=== PATIENT | male | born 1970 | race Caucasian/White ===

== ENCOUNTER 2023-06-11 18:18 | Inpatient (IN) | payer OTHER, SELFPAY ==
[2023-06-11 09:52] VITALS: BP 183/91
--- NOTE | 2023-06-11 10:42 | ED.GENMED ---
History of Present Illness
<Carmen Roth PA-C - Last Filed: 06/11/23 16:10>
General
Chief Complaint: Swallowing Problem
Source: patient
Exam Limitations: none
Time Seen by Provider: 06/11/23 10:20
Nursing documentation reviewed up to this point in time: agreed with
Travel History
Have you had any contact with someone who has COVID-19?: No
Do you have any symptoms of coronavirus? Fever > 100 degrees, chills, cough, shortness of breath, sore throat, loss of taste or smell, muscle aches, or headache?: No
History of Present Illness
History of Present Illness:
Patient is a 52-year-old male with a history of smoking and glaucoma, former alcohol abuse clean for the last 60 days after going to [facility] who is visiting his mom since the beginning of this month presents for dysphagia initially
just to solids but now to liquids over the past 2 to 3 months. He seems like symptoms are getting much worse in the last 2 or 3 weeks since being here. He has needed to switch his diet to soft foods and sometimes even for example a small bowl of
oatmeal which the patient had for breakfast yesterday which was probably about 5 ounces took him 2 hours to swallow and passed. Patient says he feels when he swallows food it gets stuck in the upper esophagus and causes a pretty intense upper back
pain. He will have to stretch or lift his arms above his head in order to pass the food. Sometimes he he tries to drink water after small bites and needs to regurgitate the water. He is actually not lost any weight despite being unable to eat
many solid foods, he believes this is because he had put on weight while he was drinking alcohol daily. Patient has never had an endoscopy before, he has no history of GI bleeding. Patient says sometimes at night he has trouble swallowing his spit
or breathing.
He gets hiccups often.
Currently the patient denies any discomfort. He was able to swallow 1 small sip of water and did not regurgitate it but got pain with swallowing.
Past History
<Carmne Roth PA-C - Last Filed: 06/11/23 16:10>
Past History
ED Past Medical History: Other (glaucoma)
ED Past Surgical History: Orthopedic (Surg R knee) and Other (hernia)
Social History
Tobacco: Smoker
Alcohol: Former (sober 60 days)
Personal: Single
Living: alone
Phy Exam
<Carmen Roth PA-C - Last Filed: 06/11/23 16:10>
Physical Exam
Physical Exam:
GENERAL: Alert , in no apparent distress
EYE: pupils equal and reactive
NECK: Supple
ENT: o/p clr, mmm. No posterior pharyngeal erythema
Phonation normal
CARDIAC: Regular rate and rhythm .
LUNGS: Clear breath sounds bilaterally, no acute respiratory distress, no wheezes/rales/rhonchi
ABDOMEN: Soft, without focal tenderness, no r/g, no cvat, normal bowel sounds
NEUROLOGICAL: Alert and oriented, no focal neuro deficits
SKIN: Warm and dry, skin intact.
MUSCULOSKELETAL: No edema, well perfused. neg jose daniel's sign
PSYCH: Normal and appropriate interaction.
Course
<Carmen Roth PA-C - Last Filed: 06/11/23 16:10>
Orders/Labs/Results
Orders:
Orders
06/11/23 10:54
Pantoprazole [Protonix IV] 40 mg IV NOW STA
06/11/23 10:56
CT Chest/abd/pel W Iv Cont Urgent
Comment:
Reason For Exam: severe dysphagia
06/11/23 11:15
Complete Blood Count/With Diff Urgent
Comprehensive Metabolic Panel Urgent
Lipase Urgent
PTT Urgent
Prothrombin Time Urgent
Abnormal Lab Results
06/11/23
11:15
RBC 4.36 L 10^6/uL
(4.70-6.10)
Hct 37.7 L %
(39.0-52.0)
MPV 11.3 H fL
(7.4-10.4)
Eosinophils % 9.0 H %
(0-6)
BUN 24 H mg/dl
(9-20)
Glucose 103 H mg/dl
(70-99)
06/11/23 11:15
06/11/23 11:15
Vital Signs
Initial and Last Documented VS:
Initial Vital Signs
Temp Pulse Resp BP Pulse Ox
97.9 F 70 16 183/91 98
06/11/23 09:52 06/11/23 09:52 06/11/23 09:52 06/11/23 09:52 06/11/23 09:52
Last Documented Vital Signs
Temp Pulse Resp BP Pulse Ox
97.9 F 59 18 130/90 98
06/11/23 09:52 06/11/23 14:45 06/11/23 14:45 06/11/23 14:15 06/11/23 15:03
<Niurka Forte MD - Last Filed: 06/11/23 11:25>
Orders/Labs/Results
Orders:
Orders
06/11/23 10:54
Pantoprazole [Protonix IV] 40 mg IV NOW STA
06/11/23 10:56
CT Chest/abd/pel W Iv Cont Urgent
Comment:
Reason For Exam: severe dysphagia
06/11/23 11:15
Complete Blood Count/With Diff Urgent
Comprehensive Metabolic Panel Urgent
Lipase Urgent
PTT Urgent
Prothrombin Time Urgent
Abnormal Lab Results
06/11/23
11:15
RBC 4.36 L 10^6/uL
(4.70-6.10)
Hct 37.7 L %
(39.0-52.0)
MPV 11.3 H fL
(7.4-10.4)
Eosinophils % 9.0 H %
(0-6)
BUN 24 H mg/dl
(9-20)
Glucose 103 H mg/dl
(70-99)
06/11/23 11:15
06/11/23 11:15
Vital Signs
Initial and Last Documented VS:
Initial Vital Signs
Temp Pulse Resp BP Pulse Ox
97.9 F 70 16 183/91 98
06/11/23 09:52 06/11/23 09:52 06/11/23 09:52 06/11/23 09:52 06/11/23 09:52
Last Documented Vital Signs
Temp Pulse Resp BP Pulse Ox
97.9 F 59 18 130/90 98
06/11/23 09:52 06/11/23 14:45 06/11/23 14:45 06/11/23 14:15 06/11/23 15:03
Carrolllt;Carmen Roth PA-C - Last Filed: 06/11/23 16:10>
MDM/Problems Addressed
Differential Diagnosis Includes:
Malignancy, dysphagia, esophageal stricture, achalasia, esophagitis
MDM/Problems Addressed:
52-year-old male with history of alcohol abuse and smoking presents for progressive dysphagia, initially to solids and now to liquids. He is able to eat some soft pur�ed foods but it takes him many attempts and several hours, he gets a pretty
intense pain in his upper back when he swallows food that he feels gets stuck. He sometimes will regurgitate liquids. The symptoms are progressive over the last 2 weeks. He is visiting from [place], sounds as if he may be a more permanent
resident of [place] for now while he is having ongoing issues with glaucoma.
Patient was able to swallow 1 small swig of his water but got some discomfort. He did not regurgitate it for me. The concern with his smoking history is he could have malignancy. I reached out to GI attending recommended imaging and we will
discuss the plan once imaging results
06/11/[address] results d/w patient, concerning for malignancy esophageal
GI attending updated
pt will be scoped
admit
<Carmen Roth PA-C - Last Filed: 06/11/23 16:10>
*Critical Care Note
Total Time (30-74mins, 75-104mins- exclusive of procedures): Not Applicable
ED Attending Note
<Carmen Roth PA-C - Last Filed: 06/11/23 16:10>
-
Portions of this chart may have been created with voice recognition software.� Occasional wrong word or��sound alike� substitutions may have occurred due to the inherent limitations of voice recognition software.
<Niurka Forte MD - Last Filed: 06/11/23 11:25>
ED Attending Note
Patient seen and examined by attending physician: Yes
I performed the substantive portion of visit, reviewed & personally made and approve the management plan that is documented in note by myself or ELOISA.: Yes
ED Attending Note:
The patient looks well-nourished and well-perfused. Normal-appearing oropharynx area. I am suspicious for mechanical esophageal obstruction due to a possible mass or stricture
Discharge Plan
Departure
Patient Disposition: Admit
Date of Disposition: 06/11/23
Time of Disposition: 15:34
Admit to: Med/Surg
Presentation/result/management discussed w/ accepting MD/DO: Hospitalist
Condition: Fair
Covid-19: Not Applicable
Discharge Problem:
Dysphagia
Prescriptions:
No Action
latanoprost 0.005 % Drops
1 drp BOTH EYES HS
vitamin B complex [B Complete] Tablet
1 tab PO DAILY
dorzolamide-timolol [Cosopt] 22.3-6.8 mg/mL Drops
1 drp BOTH EYES BID
BC Pain Relief 845-65 mg Powder In Packet
1 ea PO DAILYPRN PRN (Reason: knee pain)
Referrals:
NONE,* [Family Provider] -
Interventions
Interventions:
*General Assessment Last Done: 06/11/23 11:10
ED- Fall Risk Assessment Last Done: 06/11/23 11:25
*ED COVID-19 Vaccine History Last Done: 06/11/23 09:52
ED-EENT Assessment Last Done: 06/11/23 11:25
PL-Ckdgnr-Osrezkgiti Assessment Last Done: 06/11/23 11:25
ED- Pulmonary Assessment Last Done: 06/11/23 11:25
ED- Neurological Assessment Last Done: 06/11/23 11:25
ED Swallowing Screen Last Done: 06/11/23 15:12
[2023-06-11 11:10] VITALS: BMI 35.4
[2023-06-11] MEDS: PROTONIX IV 40 MG IV (11:16)
[2023-06-11 11:32] LABS: % Immature Granulocytes 0.3 % (0-0.5); % Lymphocytes 24.6 % (20.5-51.1); % Monocytes 7.2 % (1.7-9.3); % Neutrophils 57.9 % (42.2-75.2); Absolute Basophils 0.1 10^3/uL (0-0.2); Absolute Eosinophils 0.7 10^3/uL (0-0.7); Absolute Lymphocytes 1.9 10^3/uL (1.2-3.4); Absolute Monocytes 0.6 10^3/uL (0.1-0.6); Absolute Neutrophils 4.5 10^3/uL (1.4-6.5); Hematocrit 37.7 % (39.0-52.0); Hemoglobin 13.3 g/dL (13.0-18.0); Mean Corp Hgb Conc. 35.3 g/dL (33.0-37.0); Mean Corpuscular Hgb 30.5 pg (27.0-31.0); Mean Corpuscular Volume 86.5 fL (80.0-94.0); Mean Platelet Volume 11.3 fL (7.4-10.4); Nucleated Red Blood Cells % 0 % (-); Platelet Count 218 10^3/uL (130-400); Red Blood Cell Count 4.36 10^6/uL (4.70-6.10); Red Cell Dist. Width 11.8 % (11.5-14.5); White Blood Cell Count 7.7 10^3/uL (4.8-10.8)
[2023-06-11 11:41] LABS: ALT (SGPT) 18 U/L (0-50); AST (SGOT) 25 U/L (17-59); Albumin 3.7 g/dl (3.5-5.0); Alkaline Phosphatase 61 U/L (38-126); Blood Urea Nitrogen 24 mg/dl (9-20); Calcium 9.3 mg/dl (8.4-10.2); Carbon Dioxide 23 mmol/L (22-30); Chloride 106 mmol/L (98-107); Estimated Creatinine Clearance 110 ml/min; Glucose 103 mg/dl (70-99); Lipase 171 U/L (23-300); Potassium 4.3 mmol/L (3.5-5.1); Sodium 136 mmol/L (135-145); Total Bilirubin 0.5 mg/dl (0.2-1.3); Total Protein 6.6 g/dl (6.3-8.2); eGFR > 60.00
[2023-06-11 11:44] LABS: INR 1.03; PT 13.5 Sec (11.4-14.6)
[2023-06-11 11:45] LABS: APTT 30.5 Sec (23.4-35.0)
[2023-06-11 12:00] VITALS: BP 131/91
[2023-06-11 14:15] VITALS: BP 130/90
--- NOTE | 2023-06-11 16:19 | CON.GI ---
Consultation
-
Date/Time Consultation Requested: 06/11/23
Date/Time Consultation Performed: 06/11/23
Requesting Provider: Carmen YU
Performing Provider:
Reason for Consultation: Dysphagia
Medical History
Chief Complaint / HPI
Chief Complaint: Dysphagia
History of Present Illness:
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
area he is currently living with his mom. he came in May to visit his mom. He also had right inguinal hernia repair surgery in [place] about 3 months ago and he says that he has a fluid collection likely seroma at that site since then. He has
been having symptoms of dysphagia ongoing for the past 5 months initially started with solids but for the past 3 months he has had progressive worsening of his symptoms and now he has dysphagia to both solids and liquids. He says that yesterday he
was trying to eat oatmeal and took him about 2 hours to finish a small amount of oatmeal he has been having trouble with liquids going down and regurgitating. He also has chest pain when he feels the food is stuck with solids especially. He denies
any symptoms of reflux. he denies any weight loss though. No fevers or chills he does have a history of smoking and prior alcohol abuse. He also has chronic constipation and he says that it usually resolves when he drinks prune juice. he has not
had an endoscopy or colonoscopy in the past.
Past Medical History
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
Past Surgical History: Other (Right inguinal hernia repair about 3 months ago in [place], right knee surgery)
Social History
Tobacco: Smoker
Alcohol: Former (History of heavy alcohol use for a number of years he said he was sober for about 4 years but relapsed again and now has been sober for the past 60 days)
Family History
Family History: Reviewed & Not Pertinent
Allergies / Home Medications
Allergy/AdvReac Type Severity Reaction Status Date / Time
No Known Allergies Allergy Verified 06/11/23 09:54
Medication Instructions Recorded
aspirin-caffeine 845 mg-65 mg oral 1 ea PO DAILYPRN PRN knee pain 06/11/23
powder packet (BC Pain Relief)
dorzolamide 22.3 mg-timolol 6.8 1 drp BOTH EYES BID 06/11/23
mg/mL eye drops (Cosopt)
latanoprost 0.005 % eye drops 1 drp BOTH EYES HS 06/11/23
vitamin B complex 1 tab PO DAILY 06/11/23
Review of Systems
-
All other systems: A 12 pt ROS was Negative except as stated above in HPI
Vital Signs
Temp Pulse Resp BP Pulse Ox
97.9 F 59 18 130/90 98
06/11/23 09:52 06/11/23 14:45 06/11/23 14:45 06/11/23 14:15 06/11/23 15:03
Physical Exam
Exam
General: No Apparent Distress
HEENT: Normocephalic
Respiratory: Clear
Cardiac: S1/S2
GI: Soft, Non Tender, Non Distended and Normal Bowel Sounds
Musculoskeletal: No Clubbing
Skin: Warm
Neuro: Awake, Alert and Oriented
Psych: Calm
Results
WBC 7.7 10^3/uL (4.8-10.8) 06/11/23 11:15
Hgb 13.3 g/dL (13.0-18.0) 06/11/23 11:15
Hct 37.7 % (39.0-52.0) L 06/11/23 11:15
MCV 86.5 fL (80.0-94.0) 06/11/23 11:15
Plt Count 218 10^3/uL (130-400) 06/11/23 11:15
Absolute Neuts (auto) 4.5 10^3/uL (1.4-6.5) 06/11/23 11:15
PT 13.5 Sec (11.4-14.6) 06/11/23 11:15
INR 1.03 06/11/23 11:15
APTT 30.5 Sec (23.4-35.0) 06/11/23 11:15
Sodium 136 mmol/L (135-145) 06/11/23 11:15
Potassium 4.3 mmol/L (3.5-5.1) 06/11/23 11:15
Chloride 106 mmol/L (98-107) 06/11/23 11:15
Carbon Dioxide 23 mmol/L (22-30) 06/11/23 11:15
BUN 24 mg/dl (9-20) H 06/11/23 11:15
Creatinine 1.0 mg/dL (0.7-1.3) 06/11/23 11:15
Calcium 9.3 mg/dl (8.4-10.2) 06/11/23 11:15
Total Bilirubin 0.5 mg/dl (0.2-1.3) 06/11/23 11:15
AST 25 U/L (17-59) 06/11/23 11:15
ALT 18 U/L (0-50) 06/11/23 11:15
Alkaline Phosphatase 61 U/L (38-126) 06/11/23 11:15
Lipase 171 U/L (23-300) 06/11/23 11:15
Diagnostic Image Results:
06/11/23 CT CHEST/ABDOMEN and PELVIS
IMPRESSION:
There is concentric wall thickening to approximately 1 cm in the distal 3 cm of the esophagus, high level of suspicion for esophageal carcinoma. Endoscopy is recommended.
Prior GI Procedures:
EGD: none
Colonoscopy:none
Assessment / Plan
-
52-year-old male with symptoms of dysphagia to initially solids about 5 months ago but now to both solids and liquids worsening over the past [address] chest abdomen pelvis concerning for possible esophageal neoplasm. Will schedule him for
endoscopy tomorrow to rule out neoplasm and stricture. He currently has no symptoms of acid reflux but since he has been having regurgitation will start him on Protonix.
Data Reviewed
-
CT Scan: Report Reviewed by me
-
-
Thank you for consultation and allowing me to participate in the patient's care. Please call the ammonia nitrate operator GI physician during the after hours with any questions or concerns.
--- NOTE | 2023-06-11 17:48 | HPS.HSE ---
Family Physician
-
Family Physician: * NONE
Chief Complaint
-
dysphagia
History of Present Illness
52 y/o M prior ETOH abuse (sober x 60 days), prior tobacco abuse, currently visiting [place] from [place] presents to ER For dysphagia symptoms. Onset was 5 months ago. He reports initially solid foods which slowly progressed. Now dysphagia includes
liquids as well. Yesterday he tried to eat a small amount of oatmeal - took 2 hours to eat; he experience regurgitation. Sometimes food gets stuck and so experiences chest pain with solids. No reflux history. No weight loss - weight stable for which
he is surprised. No other complaints.
Of note, recent R inguinal hernia surgery in [place] about 3 months ago.
Medical History
Past Medical History
Past Medical History: Reports Other (glaucoma both eyes with complete loss of vision in his right eye and he is legally blind, hard of hearing in his left ear, history of alcohol abuse has been sober for the past 60 days, inguinal hernia)
Past Surgical History: Reports Other (Right inguinal hernia repair about 3 months ago in [place], right knee surgery)
Social History
Tobacco: Smoker
Alcohol: Former
Drug: None
Personal: Single
Living: With Family (Mother)
Family History
Family History: Not pertinent
Allergies / Home Medications
Allergies reflects when Allergies were last updated in [facility].
Home Medications with original date entered in [facility]
Allergy/Medication List:
Allergies
Allergy/AdvReac Type Severity Reaction Status Date / Time
No Known Allergies Allergy Verified 06/11/23 09:54
Home Medications
aspirin-caffeine 845 mg-65 mg oral powder packet (BC Pain Relief) 1 ea PO DAILYPRN PRN knee pain 06/11/23
dorzolamide 22.3 mg-timolol 6.8 mg/mL eye drops (Cosopt) 1 drp BOTH EYES BID 06/11/23
latanoprost 0.005 % eye drops 1 drp BOTH EYES HS 06/11/23
vitamin B complex 1 tab PO DAILY 06/11/23
Review of Systems
-
A 12 point ROS was completed and negative except as noted: Yes
Physical Exam
Vital Signs
Vital Signs
Temp Pulse Resp BP Pulse Ox
97.9 F 67 14 130/90 98
06/11/23 09:52 06/11/23 17:00 06/11/23 17:00 06/11/23 14:15 06/11/23 15:03
Physical Exam
General: Well Developed, Well Nourished and Obese
HEENT: NormoCephalic and Anicteric
Respiratory: No Wheezes or Rales
Cardiac: S1/S2 and Regular Rhythm
GI: Soft and Non Tender
Neuro: AO x 3
Hematologic/Lymphatic: No Lymphadenopathy
Psych: Calm
Laboratory Results
-
06/11/23 11:15
06/11/23 11:15
Laboratory Results
PT 13.5 Sec (11.4-14.6) 06/11/23 11:15
INR 1.03 06/11/23 11:15
APTT 30.5 Sec (23.4-35.0) 06/11/23 11:15
Total Bilirubin 0.5 mg/dl (0.2-1.3) 06/11/23 11:15
AST 25 U/L (17-59) 06/11/23 11:15
ALT 18 U/L (0-50) 06/11/23 11:15
Alkaline Phosphatase 61 U/L (38-126) 06/11/23 11:15
Lipase 171 U/L (23-300) 06/11/23 11:15
Data Reviewed
-
CT Scan: Report Reviewed by me and Discussed with Patient
Lab Data: Labs Reviewed by me and Discussed with Patient
Impression/Plan
-
Assessment:
Dysphagia to solids/liquids x months
- CT: There is concentric wall thickening to approximately 1 cm in the distal 3 cm of the esophagus, high level of suspicion for esophageal carcinoma
- risk factors for malignancy include prior ETOH and smoking history
- GI consulted; EGD planned tomorrow. ok for clears tonight d/w GI
- continue PPI daily
glaucoma both eyes with complete loss of vision in his right eye and he is legally blind
- continue eye drops
hx of ETOH abuse
- sober x 2 months; commended on progress
Tobacco abuse
- nicotine patch
Right inguinal hernia repair about 3 months ago in [place]
DVT ppx: SCDs
Code: Full
[2023-06-11 19:45] VITALS: BP 130/72; BMI 34.0
--- NOTE | 2023-06-11 19:58 | PTCARENOTE ---
pt arrived from ed, walked in. aaox3, VSS, passed swallow screen on unit. see MAR and assessment for further details. call steiner within reach.
[2023-06-11] MEDS: NSS 1000 IV (20:29)
[2023-06-11] MEDS: COSOPT EYE DROPS 1 DROP BOTH EYES (20:30)
[2023-06-11] MEDS: XALATAN OPHTHALMIC SOLUTION 1 DROP BOTH EYES (21:18)
[2023-06-11 23:00] VITALS: BP 129/84
[2023-06-12] VITALS (9 sets, daily range): BP systolic 19–148; BP diastolic 70–102
[2023-06-12] MEDS: TYLENOL 650 MG PO (02:51)
[2023-06-12] MEDS: TORADOL 15 MG IV (04:41)
[2023-06-12 06:18] LABS: Hematocrit 37.3 % (39.0-52.0); Hemoglobin 13.2 g/dL (13.0-18.0); Mean Corp Hgb Conc. 35.4 g/dL (33.0-37.0); Mean Corpuscular Hgb 31.1 pg (27.0-31.0); Mean Platelet Volume 11.2 fL (7.4-10.4); Platelet Count 192 10^3/uL (130-400); Red Blood Cell Count 4.24 10^6/uL (4.70-6.10); Red Cell Dist. Width 11.9 % (11.5-14.5)
[2023-06-12 06:59] LABS: Blood Urea Nitrogen 15 mg/dl (9-20); Calcium 8.9 mg/dl (8.4-10.2); Carbon Dioxide 27 mmol/L (22-30); Chloride 104 mmol/L (98-107); Estimated Creatinine Clearance 123 ml/min; Glucose 84 mg/dl (70-99); Potassium 3.9 mmol/L (3.5-5.1); Sodium 136 mmol/L (135-145); eGFR > 60.00
[2023-06-12] MEDS: NICODERM TRANSDERMAL 14 MG TRANSDERM (07:55)
[2023-06-12] MEDS: COSOPT EYE DROPS 1 DROP BOTH EYES ×2 (07:55→20:35)
[2023-06-12] MEDS: PROTONIX 40 MG PO (07:55)
--- NOTE | 2023-06-12 11:16 | W.PN.HOSP.TC ---
Today's Communication/Plan
-
EGD today
Assessment / Plan
Assessment / Plan
Assessment:
Dysphagia to solids/liquids x months
- CT: There is concentric wall thickening to approximately 1 cm in the distal 3 cm of the esophagus, high level of suspicion for esophageal carcinoma
- risk factors for malignancy include prior ETOH and smoking history
- GI consulted
- EGD: pending today
- continue PPI daily
glaucoma both eyes with complete loss of vision in his right eye and he is legally blind
- continue eye drops
hx of ETOH abuse
- sober x 2 months; commended on progress
Tobacco abuse
- nicotine patch
Right inguinal hernia repair about 3 months ago in [place]
DVT ppx: SCDs
Code: Full
Anticipated Discharge: Within 24 hours
Subjective/Interval History
-
Date of Service: June 12, 2023
reports 'deep' back pain, possibly related to his esophageal process
Objective Data
-
Labs:
Laboratory Results
06/12/23
05:59
WBC 7.0
Hgb 13.2
Hct 37.3 L
Plt Count 192
Sodium 136
Potassium 3.9
Chloride 104
Carbon Dioxide 27
BUN 15
Creatinine 0.9
Glucose 84
Calcium 8.9
Vital Signs:
Vital Signs
Temp Pulse Resp BP Pulse Ox
97.7 F 63 16 143/82 97
06/12/23 07:27 06/12/23 07:27 06/12/23 07:27 06/12/23 07:27 06/12/23 07:27
I&O
06/11/23 06/12/23 06/13/23
06:59 06:59 06:59
Intake Total 120 / 120
Output Total 600 / 600
Balance -480 / -480
Physical Exam
-
General: No Apparent Distress
HEENT: Normocephalic and Atraumatic
Respiratory: Negative Wheezes or Rales
Cardiac: Regular Rhythm and S1/S2
GI: Soft
Genito-urinary: No Costovertebral Tender
Neuro: AO x 3
Psych: Calm
Data Reviewed
-
Total Time Spent with Patient (in minutes): 45
Labs: Labs Reviewed by me
--- NOTE | 2023-06-12 12:00 | CM ---
Reviewed chart, met with patient to obtain information for assessment. Patient's sister was at bedside. Patient stated that he lives temporarily with his mother who is 85, in a condo with elevator access. Patient reported that he does need her
assistance with ADLs, personal care, dressing and bathing. He ambulates with a cane and a walker for longer distances. Patient stated that his mother has been able to handle the scope of his care as she is in good health and he can do some things on
his own. Patient is from [place] but he is staying with his mother until he hopefully feels better.
Patient is deaf in his left ear and has low vision. He does not drive. His mother and sister take him to his appointments and do all of the shopping. Patient's mother does all the masticator, cooking, cleaning and laundry.
Patient has never had VN services. He has never been to a SNF.
Patient is in the process of working with [facility] [[email or web address]] as he does not have health insurance. He does not have a prescription plan.
He goes to the [facility] in [place] for all of his medications.
Patient stated that he will be able to return home when he is medically cleared for discharge and does not anticipate any needs. He is eager to get dietary instructions for his dysphagia and is anxious about the testing.
Plan: Case management will continue to follow and assist with discharge planning. Patient would like to return home when stable medically.
--- NOTE | 2023-06-12 13:57 | PHANOTE ---
MED REC NOTE- SPOKE TO PATIENT HE DOES TAKE BC PAIN RELIEF POWDER BUT WHEN PHARMACIST WAS IN ROOM HE DIDN'T KNOW WHAT WAS IN THE POWDER. HE JUST KNOWS IT BC POWDER.
[2023-06-12] MEDS: ULTRAM 50 MG PO (15:03)
[2023-06-12 15:30] LABS: Troponin I < 0.012 ng/ml
[2023-06-12 20:41] LABS: Troponin I < 0.012 ng/ml
[2023-06-12] MEDS: XALATAN OPHTHALMIC SOLUTION 1 DROP BOTH EYES (22:19)
[2023-06-13] MEDS: ULTRAM 50 MG PO ×2 (00:54→08:51)
[2023-06-13] MEDS: TYLENOL 650 MG PO (05:54)
[2023-06-13 06:17] LABS: Hematocrit 37.5 % (39.0-52.0); Mean Corp Hgb Conc. 34.7 g/dL (33.0-37.0); Mean Corpuscular Hgb 30.6 pg (27.0-31.0); Mean Corpuscular Volume 88.2 fL (80.0-94.0); Mean Platelet Volume 11.2 fL (7.4-10.4); Platelet Count 199 10^3/uL (130-400); Red Blood Cell Count 4.25 10^6/uL (4.70-6.10); Red Cell Dist. Width 11.8 % (11.5-14.5); White Blood Cell Count 7.9 10^3/uL (4.8-10.8)
[2023-06-13 06:37] LABS: Troponin I < 0.012 ng/ml
[2023-06-13 07:20] LABS: Blood Urea Nitrogen 13 mg/dl (9-20); Calcium 8.8 mg/dl (8.4-10.2); Carbon Dioxide 28 mmol/L (22-30); Chloride 107 mmol/L (98-107); Estimated Creatinine Clearance > 125 ml/min; Glucose 84 mg/dl (70-99); Sodium 137 mmol/L (135-145); eGFR > 60.00
[2023-06-13 08:37] VITALS: BP 150/83
[2023-06-13] MEDS: NICODERM TRANSDERMAL 14 MG TRANSDERM (08:52)
[2023-06-13] MEDS: PROTONIX 40 MG PO (08:52)
[2023-06-13] MEDS: COSOPT EYE DROPS 1 DROP BOTH EYES (08:53)
--- NOTE | 2023-06-13 12:33 | W.PN.HOSP.TC ---
Today's Communication/Plan
-
dc home
Assessment / Plan
Assessment / Plan
Assessment:
Dysphagia to solids/liquids x months
- CT: There is concentric wall thickening to approximately 1 cm in the distal 3 cm of the esophagus, high level of suspicion for esophageal carcinoma
- risk factors for malignancy include prior ETOH and smoking history
- s/p EGD: Low-grade of narrowing Schatzki ring. Dilated. Medium-sized hiatal hernia. Erosive gastropathy with no bleeding and no stigmata of recent bleeding. Biopsied.
Duodenal erosions without bleeding. Normal first portion of the duodenum and second portion of the duodenum.
- continue PPI daily
- DC on Carafate
- GI f/u 1 month
Epigastric pain - likely related to above. Cardiac workup and CT without pulm/Cards etiology.
glaucoma both eyes with complete loss of vision in his right eye and he is legally blind
- continue eye drops
hx of ETOH abuse
- sober x 2 months; commended on progress
Tobacco abuse
- nicotine patch
Right inguinal hernia repair about 3 months ago in [place]
DVT ppx: SCDs
Code: Full
More than 30 minutes spent in discharge including
Final examination of the patient
Summarizing hospital stay
Instructions for continuing care to all relevant caregivers
Preparation of discharge records, prescriptions, and referral forms
Total time spent (in minutes): 41
Anticipated Discharge: Today
Subjective/Interval History
-
Date of Service: June 13, 2023
remains with epigastric pain but reports improving since EGD
tolerating diet
cardiac w/u negative
Objective Data
-
Labs:
Laboratory Results
06/13/23
06:05
WBC 7.9
Hgb 13.0
Hct 37.5 L
Plt Count 199
Sodium 137
Potassium 4.0
Chloride 107
Carbon Dioxide 28
BUN 13
Creatinine 0.8
Glucose 84
Calcium 8.8
Vital Signs:
Vital Signs
Temp Pulse Resp BP Pulse Ox
98.1 F 58 16 150/83 98
06/13/23 08:37 06/13/23 08:37 06/13/23 08:37 06/13/23 08:37 06/13/23 08:37
I&O
06/12/23 06/13/23 06/14/23
06:59 06:59 06:59
Intake Total 120 / 120 240 / 240
Output Total 600 / 600 500 / 500
Balance -480 / -480 -260 / -260
Physical Exam
-
General: No Apparent Distress
HEENT: Normocephalic and Atraumatic
Respiratory: Negative Wheezes or Rales
Cardiac: Regular Rhythm and S1/S2
GI: Soft and Nontender
Musculoskeletal: No Edema
Neuro: AO x 3
Hematologic / Lymphatic: No Lymphadenopathy
Psych: Calm
Data Reviewed
-
Total Time Spent with Patient (in minutes): 41
Labs: Labs Reviewed by me
--- NOTE | 2023-06-13 12:38 | W.DS.TRANS ---
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
-
Discharge Instructions:
Discharge Diagnosis/Procedures esophageal wall thickening Low-grade of
narrowing Schatzki ring which was Dilated.
Diet Regular
Activity As tolerated
Bathing Restrictions None
Instructions:
Stand-Alone Forms:
Changes to Home Medications: No
Discharge Medications:
DC Medications w/original date entered in [facility] [employer] [facility]
dorzolamide 22.3 mg-timolol 6.8 mg/mL eye drops (Cosopt) 1 drp BOTH EYES BID Eye Condition 06/11/23
latanoprost 0.005 % eye drops 1 drp BOTH EYES HS Eye Condition 06/11/23
pantoprazole 40 mg tablet,delayed release 40 mg PO DAILY #30 tabs 06/13/23
sucralfate 100 mg/mL oral suspension 10 ml PO ACHS #1,200 mL 06/13/23
tramadol 50 mg tablet 50 mg PO Q6HPRN PRN mod pain #30 tabs 06/13/23
Home Medication Changes
Pending Results: No
Total time spent discharging patient (in min): 41
[2023-06-13] MEDS: CARAFATE SUSPENSION 1 GM PO (14:26)
== END 2023-06-13 16:57 | disposition home or self-care (01) | DRG 392 ==
LOC: 3 WEST ACU 18:18
PROVIDERS: Physician Assistant; ADMITTING PHYSICIAN Internal Medicine; CONSULT PHYSICIAN Internal Medicine Gastroenterology; EMERGENCY PHYSICIAN Emergency Medicine
PROC: 0DB48ZX Excision of Esophagogastric Junction, Via Natural or Artificial Opening Endoscopic, Diagnostic (ICD-10-PCS; 2023-06-12)
DX: K22.2 Esophageal obstruction (principal); F17.200 Nicotine dependence, unspecified, uncomplicated; K44.9 Diaphragmatic hernia without obstruction or gangrene; K31.89 Other diseases of stomach and duodenum; K26.9 Duodenal ulcer, unspecified as acute or chronic, without hemorrhage or perforation; H40.9 Unspecified glaucoma; H54.8 Legal blindness, as defined in USA
CPT/HCPCS: 88305; 71260; 74177; 80048; 80053; 83690; 84484; 85025; 85027; 85610; 85730; 87070; 88342; 93005; 96374; 99285; 99406; C1726; Q9967

== ENCOUNTER 2023-06-16 11:56 | Emergency (ER) | payer SELFPAY ==
[2023-06-16 12:19] VITALS: BP 117/80
--- NOTE | 2023-06-16 14:47 | ED.GENMED ---
History of Present Illness
General
Chief Complaint: Swallowing Problem
Source: patient
Exam Limitations: none
Time Seen by Provider: 06/16/23 14:47
Nursing documentation reviewed up to this point in time: agreed with
Travel History
Have you had any contact with someone who has COVID-19?: No
Do you have any symptoms of coronavirus? Fever > 100 degrees, chills, cough, shortness of breath, sore throat, loss of taste or smell, muscle aches, or headache?: No
History of Present Illness
History of Present Illness:
52-year-old male with a history of smoking and glaucoma, former alcohol abuse clean for the last 2.5 months, after going to [facility], [place] resident who is visiting his mom since the beginning of May, Admitted 06/11-06/12 for presents for dysphagia
initially just to solids but now to liquids over the past 2 to 3 months.�Had Esophagogastroduodenoscopy showing: DISCHARGE DIAGNOSIS:� Esophageal wall thickening, low grade, of narrowing Schatzki ring which was dilated.
Presents today saying he continues to have pain and difficulty swallowing. Pain in throat and upper back between my shoulder blades with any effort to eat. States he will take a small bite of food, or drink, it gets stuck and then it takes 1 to 2
minutes before it goes down. Denies n/v.
Past History
Past History
ED Past Medical History: Other (glaucoma)
ED Past Surgical History: Orthopedic (Surg R knee) and Other (hernia)
Social History
Tobacco: Smoker
Alcohol: Former (sober 60 days)
Personal: Single
Living: alone
Review of Systems
Review of Systems
Allergies reviewed?: Yes
All Other Systems: ROS reviewed and negative except as documented in HPI and ROS
Constitutional: Denies fever
EENT: Reports other (Difficulty swallowing, throat pain)
Respiratory: Denies cough or trouble breathing
Cardiac: Denies chest pain
ABD/GI: Denies abdominal pain, nausea or vomiting
Musculoskeletal: Reports no symptoms
Skin: Reports no symptoms
Neurological: Reports no symptoms
Phy Exam
Physical Exam
Physical Exam:
GENERAL: No acute distress. A&Ox3.
CONSTITUTIONAL: Afebrile.
EYES: PERRL, conjunctivae normal
Neck: Supple
ENMT: moist mucus membranes, Pharynx nl
RESPIRATORY: Regular respirations, nonlabored, lungs clear.
CARDIOVASCULAR: Regular rate and rhythm, no murmurs, no rubs.
GI: Soft, nontender, normal BS
MUSCULOSKELETAL: Moves with ease. Well perfused.
SKIN: Warm, dry, pink
PSYCH: Normal mood and affect. Well kept, interactive and appropriate
NEUROLOGIC: Awake, alert and oriented. No focal neurological deficits
Course
Orders/Labs/Results
Orders:
Orders
06/16/23 15:38
Barium Swallow [RF Pharynx/cervical Esophagus] Urgent
Comment:
Reason For Exam: Pain/difficulty swallowing
06/16/23 16:23
Add On- LAB Urgent
Tests Added?: TSH
Vital Signs
Initial and Last Documented VS:
Initial Vital Signs
Temp Pulse Resp BP Pulse Ox
98.2 F 72 16 117/80 95
06/16/23 12:19 06/16/23 12:19 06/16/23 12:19 06/16/23 12:19 06/16/23 12:19
Last Documented Vital Signs
Temp Pulse Resp BP Pulse Ox
98.2 F 54 18 123/84 99
06/16/23 12:19 06/16/23 18:14 06/16/23 18:14 06/16/23 18:14 06/16/23 18:14
MDM/Problems Addressed
Differential Diagnosis Includes:
esophageal obstruction, spasm
MDM/Problems Addressed:
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
initially just to solids but now to liquids over the past 2 to 3 months.�Had Esophagogastroduodenoscopy showing: DISCHARGE DIAGNOSIS:� Esophageal wall thickening, low grade, of narrowing Schatzki ring which was dilated.
Presents today saying he continues to have pain and difficulty swallowing. Pain in throat and upper back between my shoulder blades with any effort to eat. States he will take a small bite of food, or drink, it gets stuck and then it takes 1 to 2
minutes before it goes down. Denies n/v.
06/16/2023 1448 PM
Reviewed 06/11 CT chest/abd/pelvis 'There is concentric wall thickening to approximately 1 cm in the distal 3 cm of the esophagus, high level of suspicion for esophageal carcinoma. Endoscopy is recommended.'
Results of endoscopy from reviewed: Impression: - Low-grade of narrowing Schatzki ring. Dilated.
- Medium-sized hiatal hernia.
- Erosive gastropathy with no bleeding and no stigmata
of recent bleeding. Biopsied.
- Duodenal erosions without bleeding.
- Normal first portion of the duodenum and second
portion of the duodenum.
Recommendation: - Use Protonix (pantoprazole) 40 mg PO daily.
- Await pathology results.
- Ok to AK home for OP f/u with GI, if sx do not
improve then needs manometry and or VSE/Esophagram
06/16/2023 1803 PM
Consulted both ENT doctor Miki and GI Dr. Pittman. Dr. Decker recommended barium swallow to which Dr. Pittman agreed.
Consulted Dr. Rivas now on GI call, who scoped the patient, sent barium swallow results. She will have office reach out to pt to schedule Manometry
Pt is comfortable with this plan.
Pt is speaking well, no trouble swallowing saliva or water.
*Critical Care Note
Total Time (30-74mins, 75-104mins- exclusive of procedures): Not Applicable
ED Attending Note
-
Portions of this chart may have been created with voice recognition software.� Occasional wrong word or��sound alike� substitutions may have occurred due to the inherent limitations of voice recognition software.
Discharge Plan
Departure
Patient Disposition: Home (Routine Discharge)
Date of Disposition: 06/16/23
Time of Disposition: 18:45
Patient with high blood pressure during this ER visit?: No
Condition: Fair
Discharge Problem:
Dysphagia
Instructions: Dysphagia (DC)
Prescriptions:
New
hyoscyamine sulfate [Levsin] 0.125 mg tablet
0.25 mg PO QID PRN (Reason: dyspepsia) Qty: 30 0RF
No Action
latanoprost 0.005 % Drops
1 drp BOTH EYES HS
dorzolamide-timolol [Cosopt] 22.3-6.8 mg/mL Drops
1 drp BOTH EYES BID
tramadol 50 mg Tablet
50 mg PO Q6HPRN PRN (Reason: mod pain) Qty: 30 0RF
pantoprazole 40 mg Tablet,Delayed Release (Dr/Ec)
40 mg PO DAILY Qty: 30 1RF
sucralfate 100 mg/mL suspension
10 ml PO ACHS Qty: 1200 1RF
Referrals:
NONE,* [Family Provider] -
Activity Restrictions/Additional Instructions:
As we discussed, your scan here today shows decreased motility and esophageal spasms.
I contacted Dr. Rivas and she will have someone from her office will call you to set up a manometry test.
In the meantime try the Hyoscyamine and see if it helps. I sent a prescription to your pharmacy
Continue the Protonix.
Interventions
Interventions:
*General Assessment Last Done: 06/16/23 12:15
*Neglect/Abuse Screening Last Done: 06/16/23 12:15
*ED COVID-19 Vaccine History Last Done: 06/16/23 16:13
*Nursing Disposition Last Done: 06/16/23 18:59
ED-EENT Assessment Last Done: 06/16/23 16:16
LA-Wwvept-Kpgpbvnvaf Assessment Last Done: 06/16/23 16:16
ED- Pulmonary Assessment Last Done: 06/16/23 16:16
ED- Neurological Assessment Last Done: 06/16/23 16:16
Discharge Date and Time
Discharge Date/Time: 06/16/23 18:59
[2023-06-16 16:13] VITALS: BMI 33.9
[2023-06-16 16:18] VITALS: BP 125/83
[2023-06-16 18:14] VITALS: BP 123/84
== END 2023-06-16 18:59 | disposition home or self-care (01) ==
LOC: EMR 11:56
PROVIDERS: EMERGENCY PHYSICIAN Emergency Medicine
DX: R13.10 Dysphagia, unspecified (principal); R07.0 Pain in throat; Z87.891 Personal history of nicotine dependence
CPT/HCPCS: 99283; 74210

== ENCOUNTER 2023-06-18 12:47 | Emergency (ER) | payer SELFPAY ==
[2023-06-18 13:23] VITALS: BP 154/97
--- NOTE | 2023-06-18 15:18 | ED.GENMED ---
History of Present Illness
<Isela Ludwig PA-C - Last Filed: 06/18/23 19:26>
General
Chief Complaint: Esophageal Problem
Source: patient
Exam Limitations: none
Time Seen by Provider: 06/18/23 14:52
Nursing documentation reviewed up to this point in time: agreed with
Travel History
Have you had any contact with someone who has COVID-19?: No
Do you have any symptoms of coronavirus? Fever > 100 degrees, chills, cough, shortness of breath, sore throat, loss of taste or smell, muscle aches, or headache?: Yes
Symptoms:: cough
History of Present Illness
History of Present Illness:
52-year-old male with past medical history of alcohol abuse, tobacco use, esophageal spasm/wall thickening, presenting to the emergency department today with acute on chronic dysphagia associated with chest pain and back pain since last night.
Patient reports that he has been experiencing the symptoms for the past 3 months, however patient reports that his symptoms are intermittent, but this time did not been going away and he is unable to take his medications prescribed to him from his
recent ER visit 3 days ago. Patient reports that he feels like his throat is closing and he keeps spitting up lots of saliva but is occasionally able to get some food down. Was seen here this week, and recently got a biopsy and the results are
pending but on endoscopy, they found duodenal ulcers, esophageal spasm, wall thickening, and a Schatzki ring. Patient does have follow-up scheduled with GI but his symptoms become too unbearable. He denies fevers or chills, lower abdominal pain,
hematemesis, melena, diarrhea, constipation.
Past History
<Isela Ludwig PA-C - Last Filed: 06/18/23 19:26>
Past History
ED Past Medical History: Other (glaucoma)
ED Past Surgical History: Orthopedic (Surg R knee) and Other (hernia)
Social History
Tobacco: Smoker
Alcohol: Former (sober 60 days)
Personal: Single
Living: alone
Review of Systems
<Isela Ludwig PA-C - Last Filed: 06/18/23 19:26>
Review of Systems
All Other Systems: ROS reviewed and negative except as documented in HPI and ROS
Phy Exam
<Isela Ludwig PA-C - Last Filed: 06/18/23 19:26>
Physical Exam
Physical Exam:
General: Patient is well-appearing in no acute distress
Skin: Warm and dry, no rashes or lesions
Head: Normocephalic, atraumatic
Throat: No pharyngeal erythema, no tonsillar hypertrophy, no hematoma, no PHOTOGRAPHIC COLORIST, no uvular deviation
Neck: No palpable masses
Cardiac: Regular rate, no tenderness to palpation of the external chest wall
Pulm: Normal respiratory effort
Abdomen: no tenderness to palpation
Neuro: AAOx3.
Course
<Isela Ludwig PA-C - Last Filed: 06/18/23 19:26>
Orders/Labs/Results
Orders:
Orders
06/18/23 13:24
EKG [Electrocardiogram (*1)] Urgent
Reason for Study: Chest Pain
EKG- Treatment ONCE
06/18/23 15:30
GASTROINTESTINAL CONSULT Urgent
Consulting Provider: Lisa Rivas
Was physician already notified: Yes
06/18/23 16:51
Troponin I Urgent
06/18/23 16:52
CR Chest - 2 Views Urgent
Comment:
Reason For Exam: chest pain, shortness of breath
06/18/23 17:00
Amlodipine [Norvasc] 5 mg PO DAILY
Vital Signs
Initial and Last Documented VS:
Initial Vital Signs
Temp Pulse Resp BP Pulse Ox
98.4 F 62 18 154/97 97
06/18/23 13:23 06/18/23 13:23 06/18/23 13:23 06/18/23 13:23 06/18/23 13:23
Last Documented Vital Signs
Temp Pulse Resp BP Pulse Ox
98.4 F 62 18 154/97 97
06/18/23 13:23 06/18/23 13:23 06/18/23 13:23 06/18/23 13:23 06/18/23 13:23
<Cliff Santos, DO - Last Filed: 06/18/23 15:45>
Orders/Labs/Results
Orders:
Orders
06/18/23 13:24
EKG [Electrocardiogram (*1)] Urgent
Reason for Study: Chest Pain
EKG- Treatment ONCE
06/18/23 15:30
GASTROINTESTINAL CONSULT Urgent
Consulting Provider: Lisa Rivas
Was physician already notified: Yes
06/18/23 16:51
Troponin I Urgent
06/18/23 16:52
CR Chest - 2 Views Urgent
Comment:
Reason For Exam: chest pain, shortness of breath
06/18/23 17:00
Amlodipine [Norvasc] 5 mg PO DAILY
Vital Signs
Initial and Last Documented VS:
Initial Vital Signs
Temp Pulse Resp BP Pulse Ox
98.4 F 62 18 154/97 97
06/18/23 13:23 06/18/23 13:23 06/18/23 13:23 06/18/23 13:23 06/18/23 13:23
Last Documented Vital Signs
Temp Pulse Resp BP Pulse Ox
98.4 F 62 18 154/97 97
06/18/23 13:23 06/18/23 13:23 06/18/23 13:23 06/18/23 13:23 06/18/23 13:23
<Isela Ludwig PA-C - Last Filed: 06/18/23 19:26>
MDM/Problems Addressed
Differential Diagnosis Includes:
ddx include esophageal carcinoma, esophageal spasm, esophageal web, food bolus impaction, acs,
MDM/Problems Addressed:
dysphagia
chest pain
Chronic conditions affecting care: HTN and Other (tobacco use disorder, esophageal dysmotility)
Acute Exacerbation and/or Progression of Chronic Illness: HTN
<Isela Ludwig PA-C - Last Filed: 06/18/23 19:26>
*Pulse Oximetry
Patient hypoxic: no
*EKG
Interpreted by ED Provider?: Yes
EKG Intrepretation Date: 06/18/23
Interpretation: normal
Comparison EKG: no comparison EKG present
Heart Rate: 65
Rate: normal
Rhythm: sinus
[place]: normal axis
Interval: normal interval, normal QT interval and normal [place] interval
QRS Pattern: normal QRS
Ischemia: no ischemia
*Critical Care Note
Total Time (30-74mins, 75-104mins- exclusive of procedures): Not Applicable
Data Reviewed
Review of Other/Old Records Reveals: Records (reviewed previous records from ER visits this past week)
Source: patient and family
<Isela Ludwig PA-C - Last Filed: 06/18/23 19:26>
Patient Management
Escalation/DeEscalation of care consider admission/obs:
52-year-old male with past medical history of alcohol abuse, tobacco use, esophageal spasm/wall thickening, presenting to the emergency department today with acute on chronic dysphagia associated with chest pain and back pain since last night.
Patient reports that he has been experiencing the symptoms for the past 3 months, however patient reports that his symptoms are intermittent, but this time did not been going away and he is unable to take his medications prescribed to him from his
recent ER visit 3 days ago.
His physical exam is unremarkable. His EKG shows normal sinus rhythm. Patient has had extensive work up for this problem. GI was consulted again today who evaluated patient and recommends norvasc to help with his spasms, along with cardiology follow
up considering his risk factors and atypical chest pain. Patient had full cardiac workup for these symptoms on Jun 11, including CT study of the chest, abdomen, pelvis. Patient was seen again on June 15 and had a barium swallow study done.
Today, GI did oral challenge for patient with water and patient was able to tolerate this. Although symptoms have been of the same character as symptoms patient has been having chronically, I added CXR and troponin to further evaluate for cardiac
disease and ordered norvasc to see if that would help his symptoms. When I went to reevaluate patient, he was missing. I asked nurse who reported that patient left because he thought GI told him that he could leave. I called patient on the phone to
explain the importance of cardiac follow up and to continue to see GI for further treatment after biopsy results return.
<Isela Ludwig PA-C - Last Filed: 06/18/23 19:26>
Update Note
Update Note:
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
7:19 pm--spoke to patient's mother, mom reports that patient went to bed shortly after coming home from the ED. Mom and patient state that GI office has not called them for appointment and do not have the contact info for follow up. I have provided
patient's mom with GI office number and advised to call tomorrow, as well as establish with a air sampling and monitoring.
ED Attending Note
<Isela Ludwig PA-C - Last Filed: 06/18/23 19:26>
-
Portions of this chart may have been created with voice recognition software.� Occasional wrong word or��sound alike� substitutions may have occurred due to the inherent limitations of voice recognition software.
<Cliff Santos DO - Last Filed: 06/18/23 15:45>
ED Attending Note
Patient seen and examined by attending physician: Yes
I performed the substantive portion of visit, reviewed & personally made and approve the management plan that is documented in note by myself or ELOISA.: Yes
ED Attending Note:
I have seen and evaluated the patient with a [id number] encounter. I have spoken to the advance practicer provider and involved in the medical history, the physical exam, medical decision making.
Evaluation and management service: agree unless noted differently below.
Results interpretation: agree unless noted differently below.
Focused HPI: 52-year-old male still having issues with swallowing. He was recently admitted for dysphagia and had EGD with biopsy. Patient having trouble following up with GI
Physical exam: Appears uncomfortable but is swallowing secretions. No crepitus noted to chest
Medical Decision Making: Given ongoing symptoms, will have GI evaluate in emergency department
Discharge Plan
Departure
Prescriptions:
No Action
latanoprost 0.005 % Drops
1 drp BOTH EYES HS
dorzolamide-timolol [Cosopt] 22.3-6.8 mg/mL Drops
1 drp BOTH EYES BID
tramadol 50 mg Tablet
50 mg PO Q6HPRN PRN (Reason: mod pain) Qty: 30 0RF
pantoprazole 40 mg Tablet,Delayed Release (Dr/Ec)
40 mg PO DAILY Qty: 30 1RF
sucralfate 100 mg/mL suspension
10 ml PO ACHS Qty: 1200 1RF
hyoscyamine sulfate [Levsin] 0.125 mg tablet
0.25 mg PO QID PRN (Reason: dyspepsia) Qty: 30 0RF
Referrals:
NONE,* [Family Provider] -
Interventions
Interventions:
*Risk Screen - Suicide Last Done: 06/18/23 15:20
*General Assessment Last Done: 06/18/23 15:20
*Neglect/Abuse Screening Last Done: 06/18/23 15:20
ED- Fall Risk Assessment Last Done: 06/18/23 15:20
*ED COVID-19 Vaccine History Last Done: 06/18/23 15:20
*Nursing Disposition Last Done: 06/18/23 17:28
VO-Oqrzhb-[place] Assessment Last Done: 06/18/23 15:20
ED-EENT Assessment Last Done: 06/18/23 15:20
Discharge Date and Time
Discharge Date/Time: 06/18/23 17:29
[2023-06-18] MEDS: NORVASC 5 MG PO (17:02)
--- NOTE | 2023-06-18 17:17 | CON.GI ---
Consultation
-
Date/Time Consultation Requested: 06/18/23
Date/Time Consultation Performed: 06/18/23
Requesting Provider: Isela Ludwig in ER
Performing Provider:
Reason for Consultation: dysphagia, chest pain
Medical History
Chief Complaint / HPI
Chief Complaint: chest pain, dysphagia, increased oral secretions
History of Present Illness:
This is a 52-year-old male who has past medical history of glaucoma legally blind, hard of hearing in his left ear and also former alcohol abuse who has been sober for the past 60 days lives in [place] but he said he is trying to move back to this
area he is currently living with his mom. he came in May to visit his mom who initially presented to the emergency room on 06/11/2023 with symptoms of chronic dysphagia ongoing for the past 5 months but worsening over the past 3 months initially
started with solids then was having dysphagia to both solids and liquids but mostly was having chest pain and also pain between his shoulder blades. During that visit he did have a CT of the chest, abdomen, pelvis he had initial findings of
probable esophageal mass noted on the CT chest and he then had an endoscopy on 06/12/2023 which did not reveal any evidence of esophageal mass he did have a hiatal hernia with Schatzki's ring which was dilated, gastritis, duodenal erosions were
noted. He was discharged on Protonix and Carafate but he says that he was unable to take the Carafate. And the plan was that if he did not have improvement in symptoms to get manometry or video esophagram as outpatient. He then presented again to
the emergency room on 06/16/2023 with similar symptoms and then had a video esophagram which showed esophageal spasm and decreased motility in the esophagus. ER discussed with me and I had recommended to try hyoscyamine and continue Protonix twice
daily and sent message to our office to set up manometry. He only took 1-2 doses of hyoscyamine and he says that he did not feel any improvement in symptoms and presented back to the emergency room again today with similar symptoms but now he also
complains of increased mucus and sputum and mild shortness of breath associated with the symptoms.
Past Medical History
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
Past Surgical History: Other (Right inguinal hernia repair about 3 months ago in [place], right knee surgery)
Social History
Tobacco: Smoker
Alcohol: Former (History of heavy alcohol use for a number of years he said he was sober for about 4 years but relapsed again and now has been sober for the past 60 days)
Family History
Family History: Reviewed & Not Pertinent
Allergies / Home Medications
Allergy/AdvReac Type Severity Reaction Status Date / Time
No Known Allergies Allergy Verified 06/11/23 09:54
Medication Instructions Recorded
dorzolamide 22.3 mg-timolol 6.8 1 drp BOTH EYES BID Eye Condition 06/11/23
mg/mL eye drops (Cosopt)
latanoprost 0.005 % eye drops 1 drp BOTH EYES HS Eye Condition 06/11/23
pantoprazole 40 mg tablet,delayed 40 mg PO DAILY #30 tabs 06/13/23
release
sucralfate 100 mg/mL oral 10 ml PO ACHS #1,200 mL 06/13/23
suspension
tramadol 50 mg tablet 50 mg PO Q6HPRN PRN mod pain #30 06/13/23
tabs
hyoscyamine sulfate 0.125 mg 0.25 mg PO QID PRN dyspepsia #30 06/16/23
tablet (Levsin) tabs
Review of Systems
-
All other systems: A 12 pt ROS was Negative except as stated above in HPI
Vital Signs
Temp Pulse Resp BP Pulse Ox
98.4 F 62 18 154/97 97
06/18/23 13:23 06/18/23 13:23 06/18/23 13:23 06/18/23 13:23 06/18/23 13:23
Physical Exam
Exam
General: No Apparent Distress
HEENT: Normocephalic
Respiratory: Clear
Cardiac: S1/S2 and Regular Rhythm
GI: Soft, Non Tender, Non Distended and Normal Bowel Sounds
Skin: Warm
Neuro: Awake, Alert and Oriented
Psych: Calm
Results
Diagnostic Image Results:
06/16/23 RF Pharynx/cervical Esophagus
IMPRESSION:
Nondilated, nonobstructed thoracic esophagus with marked decreased motility/tertiary contractions as well as possible esophageal spasm.
06/11/23 CT CHEST/ABDOMEN/PELVIS
IMPRESSION:
There is concentric wall thickening to approximately 1 cm in the distal 3 cm of the esophagus, high level of suspicion for esophageal carcinoma. Endoscopy is recommended.
Prior GI Procedures:
EGD: 06/12/23 Impression:� � � � � � - Low-grade of narrowing Schatzki ring. Dilated.
�� � � � � � � � � � � - Medium-sized hiatal hernia.
�� � � � � � � � � � � - Erosive gastropathy with no bleeding and no stigmata
�� � � � � � � � � � � of recent bleeding. Biopsied. Negative for H. pylori
�� � � � � � � � � � � - Duodenal erosions without bleeding.
�� � � � � � � � � � � - Normal first portion of the duodenum and second
�� � � � � � � � � � � portion of the duodenum.
Colonoscopy: none
Assessment / Plan
-
1. Recurrent symptoms of atypical chest pain with also other symptoms including throat pain, increased mucus secretions and and also dysphagia chronic for the past 3 to 5 months. he did have 3 sets of troponins which were negative with his initial
visit to the emergency room and EKG with no changes he does have evidence of esophageal spasm noted on video esophagram most likely could be causing his chest pain maybe also related to anxiety. I also told him to follow-up with a electrocardiograph operator as
OP. Discussed with ER would recommend trial of Norvasc 5 mg and or Xanax and once the manometry is done if it confirms esophageal spasm could switch him to Cardizem if no improvement with Norvasc. he did not have much improvement with PPI and
hyoscyamine, told him to try peppermint also to help with the spasms and avoid extreme cold liquids which could worsen spasm. May need a trial of amitriptyline if he has no improvement of symptoms. encouraged him to stop smoking and he has been
sober from alcohol for the past 60 days. He will be set up for an outpatient manometry will facilitate this. He did not have any endoscopic evidence of EOE but if the manometry is unremarkable and he continues to have symptoms may need repeat
endoscopy with biopsies to also rule out EOE.
2 hiatal hernia with Schatzki's ring status post dilatation continue pantoprazole.
Data Reviewed
-
Radiology: Report Reviewed by me
CT Scan: Report Reviewed by me
-
-
Thank you for consultation and allowing me to participate in the patient's care. Please call the scullion chief GI physician during the after hours with any questions or concerns.
== END 2023-06-18 17:29 ==
LOC: EMR 12:47
PROVIDERS: CONSULT PHYSICIAN Internal Medicine Gastroenterology; EMERGENCY PHYSICIAN Student in an Organized Health Care Education/Training Program
DX: R13.10 Dysphagia, unspecified (principal); K44.9 Diaphragmatic hernia without obstruction or gangrene; F10.10 Alcohol abuse, uncomplicated; F17.200 Nicotine dependence, unspecified, uncomplicated; H54.8 Legal blindness, as defined in USA
CPT/HCPCS: 99283; 93005

== ENCOUNTER 2023-08-08 06:20 | Day surgery (SDC) | payer OTHER, SELFPAY ==
[2023-07-29 09:24] VITALS: BMI 35.9
[2023-07-29 09:44] LABS: Hematocrit 41.8 % (39.0-52.0); Hemoglobin 14.6 g/dL (13.0-18.0); Mean Corp Hgb Conc. 34.9 g/dL (33.0-37.0); Mean Corpuscular Hgb 31.5 pg (27.0-31.0); Mean Corpuscular Volume 90.1 fL (80.0-94.0); Platelet Count 238 10^3/uL (130-400); Red Blood Cell Count 4.64 10^6/uL (4.70-6.10); Red Cell Dist. Width 13.4 % (11.5-14.5); White Blood Cell Count 5.8 10^3/uL (4.8-10.8)
[2023-07-29 10:34] LABS: Blood Urea Nitrogen 10 mg/dl (9-20); Carbon Dioxide 24 mmol/L (22-30); Chloride 104 mmol/L (98-107); Estimated Creatinine Clearance > 125 ml/min; Glucose 104 mg/dl (70-99); Potassium 4.2 mmol/L (3.5-5.1); Sodium 136 mmol/L (135-145); eGFR > 60.00
[2023-08-08] VITALS (10 sets, daily range): BP systolic 113–144; BP diastolic 68–100; BMI 35.9
[2023-08-08] MEDS: TYLENOL 1000 MG PO (09:45)
[2023-08-08] MEDS: NORMOSOL-R 1000 IV ×2 (09:45→15:50)
--- NOTE | 2023-08-08 14:47 | W.IMMPOSTOP ---
Addendum entered and electronically signed by Harjit Blevins MD 08/12/23 09:03:
[facility]# [id number]
Original Note:
Surgical Immed Post Op Note
-
Primary Surgeon: Francy
Assisting Surgeon: AIMEE Fernandez
Pre-op Diagnosis: Achalasia, hiatal hernia
Post-op Diagnosis: Achalasia, hiatal hernia
Procedure Performed: Laparoscopic paraesophageal hernia, Heller myotomy, Toupet fundoplication, intra-operative EGD
Anesthesia Type: General
Specimen / Cultures: None
Estimated Blood Loss: 7 cc
Complications: None
Operative Findings:
1. Small hiatal hernia, reduction with > 3 cm esophageal length
2. Heller myotomy 6 cm on esophagus and 2 cm on stomach, no leak on EGD, no strictures or narrowing
3. Posterior crural closure 0 silk x2
4. Loose floppy 2 cm Toupet fundoplication
5. Bl vagi identified, no pleural violation
[2023-08-08] MEDS: MORPHINE SULFATE 4 MG IV (15:41)
--- NOTE | 2023-08-08 15:44 | SUR.PHASEI ---
Pt complaining of chest pain, Dr. Briones made aware, EKG done, Normal Sinus Rhythm, 4mg of Morphine given. BP 140/90
HR in the 70's. 95% on 2L NC. Will continue to monitor
--- NOTE | 2023-08-08 15:55 | SUR.PHASEI ---
Called Pharmacy, to check if okay to give Pepcid after receiving in OR and okay to give
[2023-08-08] MEDS: MORPHINE SULFATE 2 MG IV (15:59)
[2023-08-08] MEDS: PEPCID 20 MG IV (16:01)
[2023-08-08] MEDS: NSS (PRESERVATIVE FREE) 8 ML IV (16:01)
--- NOTE | 2023-08-08 16:44 | PTCARENOTE ---
Patient received from PACU in bed; IVF infusing; Surgical site assessed with DIESEL RETROFIT DESIGNER; Six lap sites across the abdomen, open to air with surgical adhesive present; Patient on 3L NC; SCDs on; Patient alert to self, place, and time; Patient and family
member oriented to room and unit; Call steiner within reach; Side rails up, wheels locked; Assessment ongoing
[2023-08-08] MEDS: OFIRMEV 100 IV ×2 (17:01→22:22)
[2023-08-08] MEDS: COSOPT EYE DROPS 1 DROP BOTH EYES (20:14)
[2023-08-08] MEDS: DILAUDID 0.5 MG IV (20:29)
[2023-08-08] MEDS: XALATAN OPHTHALMIC SOLUTION 1 DROP BOTH EYES (22:22)
[2023-08-09] MEDS: DILAUDID 0.5 MG IV ×2 (00:45→07:16)
[2023-08-09] MEDS: NORMOSOL-R 1000 IV (02:53)
[2023-08-09 03:10] VITALS: BP 128/78
[2023-08-09] MEDS: OFIRMEV 100 IV ×2 (04:17→09:25)
[2023-08-09 06:25] LABS: Hematocrit 37.9 % (39.0-52.0); Hemoglobin 12.9 g/dL (13.0-18.0); Mean Corpuscular Hgb 30.8 pg (27.0-31.0); Mean Corpuscular Volume 90.5 fL (80.0-94.0); Mean Platelet Volume 10.9 fL (7.4-10.4); Platelet Count 180 10^3/uL (130-400); Red Blood Cell Count 4.19 10^6/uL (4.70-6.10); Red Cell Dist. Width 12.8 % (11.5-14.5); White Blood Cell Count 10.6 10^3/uL (4.8-10.8)
[2023-08-09 06:47] LABS: Blood Urea Nitrogen 14 mg/dl (9-20); Calcium 8.9 mg/dl (8.4-10.2); Carbon Dioxide 24 mmol/L (22-30); Chloride 106 mmol/L (98-107); Estimated Creatinine Clearance > 125 ml/min; Glucose 97 mg/dl (70-99); Potassium 4.1 mmol/L (3.5-5.1); Sodium 136 mmol/L (135-145); eGFR > 60.00
[2023-08-09 07:05] VITALS: BP 138/83
[2023-08-09] MEDS: COSOPT EYE DROPS 1 DROP BOTH EYES ×2 (07:17→19:34)
--- NOTE | 2023-08-09 10:16 | W.PN.GS2 ---
Addendum entered and electronically signed by Jacob Jackson MD 08/09/23 12:55:
I saw and examined the patient.
The PA's note was reviewed and I agree with the note.
Comment:
No overnight events. Denies N/V, pain controlled. Passing flatus.
AFVSS, abd s/nd/appropriately ttp, no r/g
-Advance to clears; if tolerating, ok for fulls this afternoon
-Pain control with tylenol and dilaudid, will add toradol
-ok for dvt ppx with lvx
-OOB/IS
-If tolerating fulls by this evening, okay for discharge this evening versus tomorrow morning
Original Note:
Today's Communication / Plan
-
Start diet
Dispo planning
Assessment / Plan
-
52 yo male with h/o achalasia and hiatal hernia presenting for scheduled repair now POD #1 Lap PEH repair with Heller myotomy and Toupet fundoplication with intraop EGD
AFVSS
Following expected course
Mild acute post operative anemia secondary to expected losses and IVF
--Start clear liquids and advance to FLD if tolerating
--Multimodal analgesics, will utilize liquid meds
--Lovenox for vte ppx
--Off IVF
--OOB/Ambulate
--IS while awake
Tentative d/c later today vs tomorrow pending PO tolerance and pain control
Subjective Data
-
Date of Service: August 09, 2023
Patient seen and examined at bedside with Dr. Jackson. Denies n/v. Notes soreness to the chest but otherwise no significant pain. Passing flatus. Voiding without difficulty.
Objective Data
-
Intake and Output
08/08/23 08/09/23 08/10/23
06:59 06:59 06:59
Intake Total 2050 / 2050
Output Total 600 / 600
Balance 1450 / 1450
Intake:
IV fluids (Total) 1849
normosol 150 / 150
IV piggybacks 200 / 200
Output:
Urine, Voided 600 / 600
Vital Signs
Temp Pulse Resp BP Pulse Ox
98.1 F 63 17 138/83 95
08/09/23 07:05 08/09/23 07:05 08/09/23 07:05 08/09/23 07:05 08/09/23 07:48
Lab Results
08/09/23 06:04
08/09/23 06:04
Calcium 8.9 mg/dl (8.4-10.2) 08/09/23 06:04
Physical Exam
-
NAD
ABD soft, mild incisional tenderness L>R, ND
Incisions well aproximated with intact glue, no erythema
--- NOTE | 2023-08-09 10:43 | CM ---
met with patient at bedside.patient lives in a first floor apt in [facility].he amb with a cane or walker and is I with his bathing and grooming.he is staying with his mom blanca in [place].patient does not have a pcp or health
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
patient is adm with alchalasia and is pod#1 lap PEH repair.he will start clear liquids and advance to full liquidsambulate.patient may be discharged today or tomorrow pending pain control and diet tolerance.patient will have no needs when discharged
home to mother's house.
[2023-08-09 11:05] VITALS: BP 117/73
[2023-08-09] MEDS: TORADOL 10 MG IV (14:03)
[2023-08-09 15:28] VITALS: BP 114/83
[2023-08-09] MEDS: LOVENOX 40 MG SC (17:00)
[2023-08-09] MEDS: ROXICODONE ORAL SOLUTION 5 MG PO ×2 (19:33→23:09)
[2023-08-09] MEDS: XALATAN OPHTHALMIC SOLUTION 1 DROP BOTH EYES (21:16)
[2023-08-09 23:11] VITALS: BP 102/65
[2023-08-10] MEDS: ROXICODONE ORAL SOLUTION 5 MG PO ×3 (04:23→22:26)
[2023-08-10 07:05] VITALS: BP 135/89
[2023-08-10] MEDS: COSOPT EYE DROPS 1 DROP BOTH EYES ×2 (07:40→20:20)
--- NOTE | 2023-08-10 09:36 | W.PN.GS2 ---
Addendum entered and electronically signed by Jacob Jackson MD 08/10/23 10:23:
I saw and examined the patient.
The CLOSING AGENT's note was reviewed and I agree with the note.
Comment:
No overnight events. Denies N/V. Passing flatus. Having pleuritic chest pains bilaterally and substernal.
AFVSS, abd s/nd/appropriately ttp, no r/g
�Will check a chest x-ray and EKG out of abundance of caution, but described pain appears appropriate for postoperative condition
-Advance to fulls
-Pain control with tylenol, Toradol and dilaudid
-Dvt ppx with lvx
-OOB/IS
-If tolerating fulls by this evening, okay for discharge this evening versus tomorrow morning
Original Note:
Today's Communication / Plan
-
Pain management
Assessment / Plan
-
52 yo male with h/o achalasia and hiatal hernia presenting for scheduled repair now POD #2 Lap PEH repair with Heller myotomy and Toupet fundoplication with intraop EGD
AFVSS
Post op pain pattern typical with this type of surgery
Labs stable
--FLD
--Multimodal analgesics, will utilize liquid meds
--Lovenox for vte ppx
--CXR/EKG
--OOB/Ambulate
--IS while awake
--Colace BID
Tentative d/c later today vs tomorrow pending PO tolerance and pain control
Subjective Data
-
Date of Service: August 10, 2023
Patient seen and examined at bedside. Denies n/v but with some indigestion/reflux this am. Anxious about going home with his elderly mother. Does not pain to the chest with deep breathing into his left collar bone. Passing flatus but no stool as of
yet.
Objective Data
-
Intake and Output
08/09/23 08/10/23 08/11/23
06:59 06:59 06:59
Intake Total 2049 / 2049 900 / 900
Output Total 600 / 600 450 / 450
Balance 1450 / 1450 450 / 450
Intake:
Oral fluids 400 / 400
IV fluids (Total) 1850 / 1850 400 / 400
normosol 150 / 150
IV piggybacks 200 / 200 100 / 100
Output:
Urine, Voided 600 / 600 450 / 450
Other:
Number of approximated MODERATE 4
amounts of urine
Vital Signs
Temp Pulse Resp BP Pulse Ox
98.3 F 54 17 135/89 98
08/10/23 07:05 08/10/23 07:05 08/10/23 07:05 08/10/23 07:05 08/10/23 08:00
Lab Results
08/09/23 06:04
08/09/23 06:04
Calcium 8.9 mg/dl (8.4-10.2) 08/09/23 06:04
Physical Exam
-
NAD
ABD soft, mild incisional tenderness L>R (improved), ND
Incisions well approximated with intact glue, no erythema
[2023-08-10] MEDS: COLACE LIQUID 100 MG PO ×2 (09:54→20:19)
[2023-08-10] MEDS: TORADOL 10 MG IV ×3 (11:47→23:08)
--- NOTE | 2023-08-10 12:08 | PTCARENOTE ---
I went in to give the patient his scheduled Toradol for 12:00pm. The room smelled of marijuana. I asked another associated to go in and see if they had smelled marijuana as well, they did. I went back in and asked the patient if he had any marijuana
on him and if so it needed to be removed from the hospital. The patient denied having marijuana on him and denied using marijuana in the hospital. I informed the patient that marijuana and using marijuana is not allowed in the hospital. Nursing
supervisor assembly and AIMEE Brian notified.
--- NOTE | 2023-08-10 14:58 | PTCARENOTE ---
AIMEE Brian went in to speak with patient and found a marijuana pen on the bedside table. She then came out to inform me of this finding. Nursing supervisor production department informed. I called security and asked them to come up and room the marijuana pen from patient's
bedside. Security and I went into patient's room, I woke the patient up and informed him of his marijuana pen being taken by security and put in a locked safe. Patient was informed by security and myself that he can receive this marijuana pen upon
discharge through security. Patient understood, all questions answered.
[2023-08-10 15:05] VITALS: BP 131/83
[2023-08-10] MEDS: LOVENOX 40 MG SC (17:05)
[2023-08-10 19:55] VITALS: BP 123/73
[2023-08-10] MEDS: XALATAN OPHTHALMIC SOLUTION 1 DROP BOTH EYES (22:15)
[2023-08-10 23:05] VITALS: BP 149/93
[2023-08-11] MEDS: TORADOL 10 MG IV (05:24)
[2023-08-11 07:30] VITALS: BP 157/96
[2023-08-11] MEDS: COLACE LIQUID 100 MG PO (08:13)
[2023-08-11] MEDS: COSOPT EYE DROPS 1 DROP BOTH EYES (08:13)
--- NOTE | 2023-08-11 09:57 | W.PN.GS2 ---
Today's Communication / Plan
-
Dispo planning
Assessment / Plan
-
52 yo male with h/o achalasia and hiatal hernia presenting for scheduled repair now POD # 3 lap PEH repair with Heller myotomy and Toupet fundoplication with intraop EGD
AFVSS
Post op pain pattern typical with this type of surgery
Labs stable
Will DC home today on 2-week full liquid diet.
Time Spent
Total Time Spent with Patient (in minutes): 15
Subjective Data
-
Date of Service: August 11, 2023
Interval Events:
No acute events overnight. Slept well. Pain Controlled. Denies Nausea/Vomiting, +bowel function. Tolerating diet.
Objective Data
-
Intake and Output
08/10/23 08/11/23 08/12/23
06:59 06:59 06:59
Intake Total 900 / 900 1620 / 1620
Output Total 450 / 450
Balance 450 / 450 1620 / 1620
Intake:
Oral fluids 400 / 400 1620 / 1620
IV fluids (Total) 400 / 400
IV piggybacks 100 / 100
Output:
Urine, Voided 450 / 450
Other:
Number of approximated MODERATE 4 4
amounts of urine
Vital Signs
Temp Pulse Resp BP Pulse Ox
98.0 F 55 18 157/96 95
08/11/23 07:30 08/11/23 07:30 08/11/23 07:30 08/11/23 07:30 08/11/23 07:30
Lab Results
08/09/23 06:04
08/09/23 06:04
Calcium 8.9 mg/dl (8.4-10.2) 08/09/23 06:04
Physical Exam
-
GENERAL/NEURO: Awake, Alert, no distress
CHEST: Unlabored breathing on RA
ABDOMEN: Soft, Non-Tender, Non-Distended, incisions clean dry and intact.
--- NOTE | 2023-08-11 10:00 | W.DS.TRANS ---
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
-
Discharge Instructions:
Sleep Apnea Risk Intermediate
Discharge Diagnosis/Procedures Achalasia s/p laparoscopic hiatal hernia repair
and Heller myotomy
Diet Other diet
Additional Diets Full liquids for 2 weeks. Advance to soft foods
after outpatient follow-up
Activity No strenuous activity
Additional Activity No heavy lifting (>20lbs or strenuous activities
for 4 to 6 weeks postoperatively)
Driving Restrictions No driving if to sore or taking narcotics
Bathing Restrictions OK to Shower
Wound Care Keep incisions clean and dry. Glue will flake
off in 2 to 3 weeks. Stitches will dissolve.
Use ice to the abdomen to reduce bruising and
swelling for the first 48 to 72 hours
postoperatively.
Instructions:
Stand-Alone Forms:
Changes to Home Medications: No
Discharge Medications:
DC Medications w/original date entered in [facility]
dorzolamide 22.3 mg-timolol 6.8 mg/mL eye drops (Cosopt) 1 drp BOTH EYES BID Eye Condition 06/11/23
latanoprost 0.005 % eye drops 1 drp BOTH EYES HS Eye Condition 06/11/23
acetaminophen 650 mg/20.3 mL oral solution 650 mg (20.3 mL) PO Q4HPRN PRN MILD PAIN 5 days #1,015 mL 08/09/23
oxycodone 5 mg/5 mL oral solution 5 mg (5 mL) PO Q4HPRN PRN severe/breakthrough pain #60 mL 08/09/23
Home Medication Changes
Pending Results: No
--- NOTE | 2023-08-11 10:51 | CM ---
Patient has been medically cleared for discharge to mother's home with no additional skilled services. Patient has arranged for transport home.
== END 2023-08-11 10:44 | disposition home or self-care (01) ==
LOC: SDS 06:20
PROVIDERS: ATTENDING PHYSICIAN Surgery
DX: K44.9 Diaphragmatic hernia without obstruction or gangrene (principal); K22.0 Achalasia of cardia; K21.00 Gastro-esophageal reflux disease with esophagitis, without bleeding; D64.9 Anemia, unspecified
CPT/HCPCS: 43281; 43235; 36415; 71046; 80048; 85027; 87070; 93005; C1729

== ENCOUNTER 2023-08-27 17:07 | Emergency (ER) | payer OTHER, SELFPAY ==
[2023-08-27 17:13] VITALS: BP 113/86; BMI 33.2
[2023-08-27 17:46] LABS: % Basophils 1.1 % (0-2); % Eosinophils 6.8 % (0-6); % Immature Granulocytes 0.4 % (0-0.5); % Lymphocytes 34.9 % (20.5-51.1); % Monocytes 5.8 % (1.7-9.3); Absolute Basophils 0.1 10^3/uL (0-0.2); Absolute Eosinophils 0.7 10^3/uL (0-0.7); Absolute Lymphocytes 3.4 10^3/uL (1.2-3.4); Absolute Monocytes 0.6 10^3/uL (0.1-0.6); Hematocrit 42.4 % (39.0-52.0); Hemoglobin 15.4 g/dL (13.0-18.0); Mean Corp Hgb Conc. 36.3 g/dL (33.0-37.0); Mean Corpuscular Hgb 31.6 pg (27.0-31.0); Mean Corpuscular Volume 87.1 fL (80.0-94.0); Mean Platelet Volume 12.1 fL (7.4-10.4); Nucleated Red Blood Cells % 0 % (-); Platelet Count 203 10^3/uL (130-400); Red Blood Cell Count 4.87 10^6/uL (4.70-6.10); Red Cell Dist. Width 12.9 % (11.5-14.5); White Blood Cell Count 9.8 10^3/uL (4.8-10.8)
[2023-08-27 17:50] LABS: Alcohol 169 mg/dl; Blood Urea Nitrogen 10 mg/dl (9-20); Calcium 9.6 mg/dl (8.4-10.2); Carbon Dioxide 18 mmol/L (22-30); Chloride 113 mmol/L (98-107); Estimated Creatinine Clearance 121 ml/min; Glucose 104 mg/dl (70-99); Potassium 4.1 mmol/L (3.5-5.1); Sodium 145 mmol/L (135-145); eGFR > 60.00
[2023-08-27 17:52] LABS: COVID-19 Antigen Negative (Negative)
[2023-08-27 17:53] LABS: Amphetamines Negative (Negative); Barbiturates Negative (Negative); Benzodiazepines Negative (Negative); Buprenorphine Negative (Negative); Cocaine Negative (Negative); Marijuana Negative (Negative); Methadone Negative (Negative); Methamphetamines Negative (Negative); Opiates Negative (Negative); Phencyclidine Negative (Negative); Tricyclic Antidepressants Negative (Negative)
--- NOTE | 2023-08-27 18:37 | ED.GENMED ---
History of Present Illness
<JENNIFER Parikh - Last Filed: 08/28/23 00:38>
General
Chief Complaint: Crisis Evaluation
Source: patient
Exam Limitations: none
Time Seen by Provider: 08/27/23 17:59
Travel History
Have you had any contact with someone who has COVID-19?: No
Do you have any symptoms of coronavirus? Fever > 100 degrees, chills, cough, shortness of breath, sore throat, loss of taste or smell, muscle aches, or headache?: No
History of Present Illness
History of Present Illness:
This is a 52 year old male that is brought in by police. Told that patient attempted to strangle himself in crisis. Patient states that he is depressed and doesn't really want to talk about it as states it won't help. States that he did have nausea
today and diarrhea. Denies any fever, chills, chest pain, SOB, abd pain, vomiting. headache, dizziness, urinary burning.
Past History
<JENNIFER Parikh - Last Filed: 08/28/23 00:38>
Past History
ED Past Medical History: GERD, Psychiatric (Anxiety, Depression) and Other (glaucoma, Migraines, Hiatal hernia, Renal calculus, BLIND, DEAF, )
ED Past Surgical History: Cholecystectomy, Orthopedic (Bilateral knee surgery, ) and Other (hernia right inguinal, Paraesophageal hernia repair)
Social History
Tobacco: Smoker
Alcohol: Occasional (sober 60 days)
Personal: Single
Living: alone
Review of Systems
<JENNIFER Parikh - Last Filed: 08/28/23 00:38>
Review of Systems
All Other Systems: ROS reviewed and negative except as documented in HPI and ROS
Constitutional: Reports no symptoms; Denies fever or chills
EENT: Reports no symptoms
Respiratory: Reports no symptoms; Denies cough or trouble breathing
Cardiac: Reports no symptoms; Denies chest pain
ABD/GI: Reports nausea and diarrhea; Denies abdominal pain or vomiting
: Reports no symptoms; Denies dysuria, frequency or urgency
Musculoskeletal: Reports no symptoms
Skin: Reports no symptoms
Neurological: Reports no symptoms; Denies dizzy or headache
Psychiatric: Reports no symptoms
Phy Exam
<JENNIFER Parikh - Last Filed: 08/28/23 00:38>
General Physical Exam
General Presentation: no apparent distress
General age: appears stated age
General Skin: warm and dry
General Habitus: poor hygiene
General Mental: alert
General Hydration: appears well hydrated
ENT Exam
ENT Exam: TM's normal, pharynx normal and neck supple
Eye Exam
Eye Exam: EOMI
Cardiovascular Exam
Cardiovascular Exam: regular rate/rhythm, no edema, no murmur and normal peripheral pulses
Pulmonary Exam
Pulmonary Exam: lungs clear, no respiratory distress, no rales, chest non tender, no crackles, no rhonchi, no wheezing and no cough
Gastrointestinal Exam
Gastrointestinal Exam: normal bowel sounds, non tender, soft, no organomegaly, no pulsatile mass, non distended and other (about 5 small area with dermabond skin glue noted. Dry and clean)
Musculoskeletal Exam
Musculoskeletal Exam: full ROM and no edema
Skin Exam
Skin Exam: normal color, warm/dry, no rash and no petechia
Psychiatric Exam
Psychiatric Exam: normal mood/affect
Course
<JENNIFER Parikh - Last Filed: 08/28/23 00:38>
Orders/Labs/Results
Orders:
Orders
08/27/23 17:10
Electrocardiogram (*1) Urgent
Reason for Study: Shortness of Breath
08/27/23 17:11
EKG- Treatment ONCE
08/27/23 17:19
Alcohol Urgent
Basic Metabolic Panel Urgent
COVID-19 Antigen Urgent
Source: Nasal Swab
Complete Blood Count/With Diff Urgent
Urine Drug Abuse Screen Urgent
Date Specimen was Collected: 08/27/23
Time Specimen was Collected: 17:11
INF RAPID [Influenza A+B Rapid Molecular] Urgent
JAMES Source: Nasal Swab
Specimen Description:
08/27/23 17:22
Crisis Consult Urgent
Reason for Consult: suicidal
1:1 Observation - Suicide/ Violent Behavior As Directed
Abnormal Lab Results
08/27/23
17:19
MCH 31.6 H pg
(27.0-31.0)
MPV 12.1 H fL
(7.4-10.4)
Eosinophils % 6.8 H %
(0-6)
Chloride 113 H mmol/L
(98-107)
Carbon Dioxide 18 L mmol/L
(22-30)
Glucose 104 H mg/dl
(70-99)
08/27/23 17:19
08/27/23 17:19
Chloride slighlty elevated. Carbon dioxide low. Glucose nonfasting. Alcohol 169, COVID and Influenza negative. Urine Drug negative.
Vital Signs
Initial and Last Documented VS:
Initial Vital Signs
Temp Pulse Resp BP Pulse Ox
97.2 F 99 18 113/86 96
08/27/23 17:13 08/27/23 17:13 08/27/23 17:13 08/27/23 17:13 08/27/23 17:13
Last Documented Vital Signs
Temp Pulse Resp BP Pulse Ox
97.2 F 99 18 113/86 96
08/27/23 17:13 08/27/23 17:13 08/27/23 17:13 08/27/23 17:13 08/27/23 17:13
<Lilliana Limon MD - Last Filed: 08/27/23 23:12>
Orders/Labs/Results
Orders:
Orders
08/27/23 17:10
Electrocardiogram (*1) Urgent
Reason for Study: Shortness of Breath
08/27/23 17:11
EKG- Treatment ONCE
08/27/23 17:19
Alcohol Urgent
Basic Metabolic Panel Urgent
COVID-19 Antigen Urgent
Source: Nasal Swab
Complete Blood Count/With Diff Urgent
Urine Drug Abuse Screen Urgent
Date Specimen was Collected: 08/27/23
Time Specimen was Collected: 17:11
INF RAPID [Influenza A+B Rapid Molecular] Urgent
JAMES Source: Nasal Swab
Specimen Description:
08/27/23 17:22
Crisis Consult Urgent
Reason for Consult: suicidal
1:1 Observation - Suicide/ Violent Behavior As Directed
Abnormal Lab Results
08/27/23
17:19
MCH 31.6 H pg
(27.0-31.0)
MPV 12.1 H fL
(7.4-10.4)
Eosinophils % 6.8 H %
(0-6)
Chloride 113 H mmol/L
(98-107)
Carbon Dioxide 18 L mmol/L
(22-30)
Glucose 104 H mg/dl
(70-99)
08/27/23 17:19
08/27/23 17:19
Vital Signs
Initial and Last Documented VS:
Initial Vital Signs
Temp Pulse Resp BP Pulse Ox
97.2 F 99 18 113/86 96
08/27/23 17:13 08/27/23 17:13 08/27/23 17:13 08/27/23 17:13 08/27/23 17:13
Last Documented Vital Signs
Temp Pulse Resp BP Pulse Ox
97.2 F 99 18 113/86 96
08/27/23 17:13 08/27/23 17:13 08/27/23 17:13 08/27/23 17:13 08/27/23 17:13
<JENNIFER Parikh - Last Filed: 08/28/23 00:38>
MDM/Problems Addressed
Differential Diagnosis Includes:
Suicidal behavior, depresion
MDM/Problems Addressed:
This is a 52 year old male that comes in with after being in Crisis and attempted to strangle himself. Told that he was 302's by the police. [facility] is talking with patient.
Will get labs.
Spoke with Crisis and told the [facility] upheld his 302. Crisis is looking for placement.
Chronic conditions affecting care: Psychiatric illness
Acute Exacerbation and/or Progression of Chronic Illness: Psychiatric illness
<JENNIFER Parikh - Last Filed: 08/28/23 00:38>
*Pulse Oximetry
Patient hypoxic: no
*EKG
Interpreted by ED Provider?: Yes
Interpretation: normal
Heart Rate: 75
Rate: normal
Rhythm: sinus
[place]: normal axis
Interval: normal interval
QRS Pattern: normal QRS
Ischemia: no ischemia (Checked by Dr. Limon)
*Airplane Flight Attendant Interpretation
Rate: Airplane Flight Attendant- N/A
*Critical Care Note
Total Time (30-74mins, 75-104mins- exclusive of procedures): Not Applicable
ED Attending Note
<JENNIFER Parkih - Last Filed: 08/28/23 00:38>
-
Portions of this chart may have been created with voice recognition software.� Occasional wrong word or��sound alike� substitutions may have occurred due to the inherent limitations of voice recognition software.
<Lilliana Limon MD - Last Filed: 08/27/23 23:12>
ED Attending Note
Patient seen and examined by attending physician: Yes
I performed the substantive portion of visit, reviewed & personally made and approve the management plan that is documented in note by myself or ELOISA.: Yes
ED Attending Note:
52-year-old male presents emergency department after being seen in crisis and attempting to strangle himself with a necklace. On exam, patient is upset, depressed affect. No physical signs of injury noted at neck area, trachea midline, no trismus,
no drool, no stridor, easy even respirations without respiratory distress. 302 upheld by telepsych. Patient medically clear for hospitalization.
Discharge Plan
Departure
Patient Disposition: Psych Facility
Date of Disposition: 08/28/23
Time of Disposition: 00:35
Patient with high blood pressure during this ER visit?: No
Condition: Good
Covid-19: Not Applicable
Discharge Problem:
Suicidal behavior, Depression
Instructions: Depression, Adult (DC), Self-Harm (DC)
Prescriptions:
No Action
latanoprost 0.005 % Drops
1 drp BOTH EYES HS
dorzolamide-timolol [Cosopt] 22.3-6.8 mg/mL Drops
1 drp BOTH EYES BID
oxycodone 5 mg/5 mL Solution
5 mg PO Q4HPRN PRN (Reason: severe/breakthrough pain) Qty: 60 0RF
acetaminophen 500 mg/15 mL liquid
1,000 mg PO Q6H PRN (Reason: mild pain) Qty: 237 0RF
Referrals:
NONE,* [Family Provider] -
Activity Restrictions/Additional Instructions:
Follow up as directed by Crisis.
Interventions
Interventions:
*Risk Screen - Suicide Last Done: 08/27/23 17:13
*General Assessment Last Done: 08/27/23 17:13
*Neglect/Abuse Screening Last Done: 08/27/23 17:13
ED- Fall Risk Assessment Last Done: 08/27/23 17:45
*ED COVID-19 Vaccine History Last Done: 08/27/23 17:13
ED-Psychological Assessment Last Done: 08/27/23 17:29
Discharge Date and Time
Print Language: MONEGASQUE
[2023-08-28 06:56] VITALS: BP 132/96
== END 2023-08-28 09:35 ==
LOC: EMR 17:07
PROVIDERS: EMERGENCY PHYSICIAN Emergency Medicine
DX: T14.91XA Suicide attempt, initial encounter (principal); X83.8XXA Intentional self-harm by other specified means, initial encounter; Y92.89 Other specified places as the place of occurrence of the external cause; F32.A Depression, unspecified; Z65.3 Problems related to other legal circumstances; R11.0 Nausea; R19.7 Diarrhea, unspecified; F10.90 Alcohol use, unspecified, uncomplicated; Y90.6 Blood alcohol level of 120-199 mg/100 ml; Z11.52 Encounter for screening for COVID-19; K21.9 Gastro-esophageal reflux disease without esophagitis; F41.9 Anxiety disorder, unspecified; G43.909 Migraine, unspecified, not intractable, without status migrainosus; H54.7 Unspecified visual loss; H91.90 Unspecified hearing loss, unspecified ear; F17.200 Nicotine dependence, unspecified, uncomplicated; Z87.442 Personal history of urinary calculi; Z90.49 Acquired absence of other specified parts of digestive tract; Z91.048 Other nonmedicinal substance allergy status
CPT/HCPCS: 99285; 80048; 80306; 82077; 85025; 87502; 87811; 93005

== ENCOUNTER → 2023-09-29 09:18 | Outpatient (REF) | payer OTHER, SELFPAY | LOC: RAD 09:18 | PROVIDERS: ATTENDING PHYSICIAN Family Medicine | DX: K40.90 Unilateral inguinal hernia, without obstruction or gangrene, not specified as recurrent (principal); N50.89 Other specified disorders of the male genital organs | CPT/HCPCS: 76870; 76882; 93976 ==

== ENCOUNTER → 2023-09-30 08:39 | Outpatient (REF) | payer OTHER, SELFPAY | LOC: RAD 08:39 | PROVIDERS: ATTENDING PHYSICIAN Surgery; FAMILY PHYSICIAN Family Medicine | DX: Z98.890 Other specified postprocedural states (principal); Z87.19 Personal history of other diseases of the digestive system; R13.19 Other dysphagia | CPT/HCPCS: 74246 ==

== ENCOUNTER 2023-12-05 21:09 | Emergency (ER) | payer OTHER, SELFPAY ==
[2023-12-05 21:10] VITALS: BMI 33.0
[2023-12-05 21:11] VITALS: BP 133/96
[2023-12-05 21:52] LABS: % Basophils 0.6 % (0-2); % Eosinophils 3.5 % (0-6); % Immature Granulocytes 0.5 % (0-0.5); % Lymphocytes 23.7 % (20.5-51.1); % Monocytes 5.2 % (1.7-9.3); % Neutrophils 66.5 % (42.2-75.2); Absolute Basophils 0.1 10^3/uL (0-0.2); Absolute Eosinophils 0.4 10^3/uL (0-0.7); Absolute Immature Granulocytes 0.1 10^3/uL (0-0.05); Absolute Monocytes 0.7 10^3/uL (0.1-0.6); Absolute Neutrophils 8.4 10^3/uL (1.4-6.5); Hematocrit 40.9 % (39.0-52.0); Hemoglobin 14.8 g/dL (13.0-18.0); Mean Corp Hgb Conc. 36.2 g/dL (33.0-37.0); Mean Corpuscular Hgb 31.3 pg (27.0-31.0); Mean Corpuscular Volume 86.5 fL (80.0-94.0); Mean Platelet Volume 11.9 fL (7.4-10.4); Nucleated Red Blood Cells % 0 % (-); Platelet Count 180 10^3/uL (130-400); Red Blood Cell Count 4.73 10^6/uL (4.70-6.10); Red Cell Dist. Width 12.4 % (11.5-14.5); White Blood Cell Count 12.7 10^3/uL (4.8-10.8)
[2023-12-05 21:59] LABS: ALT (SGPT) 23 U/L (0-50); AST (SGOT) 28 U/L (17-59); Albumin 4.6 g/dl (3.5-5.0); Alcohol 147 mg/dl; Alkaline Phosphatase 56 U/L (38-126); Blood Urea Nitrogen 21 mg/dl (9-20); Calcium 9.7 mg/dl (8.4-10.2); Carbon Dioxide 20 mmol/L (22-30); Chloride 111 mmol/L (98-107); Estimated Creatinine Clearance 93 ml/min; Glucose 93 mg/dl (70-99); Potassium 4.1 mmol/L (3.5-5.1); Sodium 146 mmol/L (135-145); Total Bilirubin 0.3 mg/dl (0.2-1.3); Total Protein 7.2 g/dl (6.3-8.2); eGFR > 60.00
[2023-12-05 22:03] LABS: Amphetamines Negative (Negative); Barbiturates Negative (Negative); Benzodiazepines Positive (Negative); Buprenorphine Negative (Negative); Cocaine Negative (Negative); Marijuana Positive (Negative); Methadone Negative (Negative); Methamphetamines Negative (Negative); Opiates Negative (Negative); Phencyclidine Negative (Negative); Tricyclic Antidepressants Negative (Negative)
[2023-12-05 22:19] LABS: Fentanyl, Urine Negative (Negative)
--- NOTE | 2023-12-05 22:30 | ED.GENMED ---
History of Present Illness
General
Chief Complaint: Psychiatric Problem
Time Seen by Provider: 12/05/23 22:05
History of Present Illness
History of Present Illness:
53-year-old male presents the emergency department for evaluation of alcohol intoxication. He states he was discharged from clinic this morning, for leaving the multiple foreign travel or a lot of alcohol. He states that he then fell asleep on a
park bench and was picked up by police and brought to this hospital. States his last drink was 4 to 5 hours prior to arrival. On my evaluation he appears clinically sober and he denies any suicidal or homicidal ideation. States to me that he
seems and wants to leave. When questioned about what his plan is given that he is homeless, he states 'I do not have a plan but I want him on tomorrow or the next day either'. He denies any acute medical complaint
Past History
Past History
ED Past Medical History: GERD, Psychiatric (Anxiety, Depression) and Other (glaucoma, Migraines, Hiatal hernia, Renal calculus, BLIND, DEAF, )
ED Past Surgical History: Cholecystectomy, Orthopedic (Bilateral knee surgery, ) and Other (hernia right inguinal, Paraesophageal hernia repair)
Social History
Tobacco: Smoker
Alcohol: Occasional (sober 60 days)
Personal: Single
Living: alone
Review of Systems
Review of Systems
Allergies reviewed?: Yes
All Other Systems: ROS reviewed and negative except as documented in HPI and ROS
Phy Exam
Physical Exam
Physical Exam:
GEN: Well appearing, NAD, WDWN
HEENT: Oral mucosa moist, no scleral icterus
Cardiac: Regular rate
Lung: No respiratory distress, no tachypnea
MSK: No gross deformity or injuries
Skin: Good color, no pallor or jaundice, no rashes
Neuro: AO x3, moves all extremities freely
Psych: Calm, cooperative
Course
Orders/Labs/Results
Orders:
Orders
12/05/23 21:32
Alcohol Urgent
Complete Blood Count/With Diff Urgent
Comprehensive Metabolic Panel Urgent
Fentanyl, Urine Urgent
Urine Drug Abuse Screen Urgent
Date Specimen was Collected: 12/05/23
Time Specimen was Collected: 21:18
Abnormal Lab Results
12/05/23
21:32
WBC 12.7 H 10^3/uL
(4.8-10.8)
MCH 31.3 H pg
(27.0-31.0)
MPV 11.9 H fL
(7.4-10.4)
Abs Immat Gran (auto) 0.1 H 10^3/uL
(0-0.05)
Absolute Neuts (auto) 8.4 H 10^3/uL
(1.4-6.5)
Absolute Monos (auto) 0.7 H 10^3/uL
(0.1-0.6)
Sodium 146 H mmol/L
(135-145)
Chloride 111 H mmol/L
(98-107)
Carbon Dioxide 20 L mmol/L
(22-30)
BUN 21 H mg/dl
(9-20)
U Benzodiazepines Scrn Positive H
(Negative)
U Marijuana (THC) Screen Positive H
(Negative)
12/05/23 21:32
12/05/23 21:32
Vital Signs
Initial and Last Documented VS:
Initial Vital Signs
Temp Pulse Resp BP Pulse Ox
98.3 F 85 20 133/96 95
12/05/23 21:11 12/05/23 21:11 12/05/23 21:11 12/05/23 21:11 12/05/23 21:11
Last Documented Vital Signs
Temp Pulse Resp BP Pulse Ox
98.3 F 85 16 133/96 95
12/05/23 21:11 12/05/23 21:11 12/05/23 22:00 12/05/23 21:11 12/05/23 21:11
MDM/Problems Addressed
MDM/Problems Addressed:
Patient appears clinically sober, although his alcohol was measured at 147 approximate 1 hour prior to my evaluation, he is a noted chronic alcoholic and this likely indicates a higher tolerance level for sobriety. He is not exhibiting any
withdrawal symptoms. Do not have any grounds to hold him against as well at this time he denies any psychiatric complaints. He request to be discharged and although he is homeless does not wish to receive any licensed clinical social worker here in the hospital
*Critical Care Note
Total Time (30-74mins, 75-104mins- exclusive of procedures): Not Applicable
ED Attending Note
-
Portions of this chart may have been created with voice recognition software.� Occasional wrong word or��sound alike� substitutions may have occurred due to the inherent limitations of voice recognition software.
Discharge Plan
Departure
Patient Disposition: Home (Routine Discharge)
Date of Disposition: 12/05/23
Time of Disposition: 22:30
Patient with high blood pressure during this ER visit?: No
Discharge Problem:
Alcohol intoxication
Instructions: Alcohol Intoxication ED
Prescriptions:
No Action
latanoprost 0.005 % Drops
1 drp BOTH EYES HS
dorzolamide-timolol [Cosopt] 22.3-6.8 mg/mL Drops
1 drp BOTH EYES BID
oxycodone 5 mg/5 mL Solution
5 mg PO Q4HPRN PRN (Reason: severe/breakthrough pain) Qty: 60 0RF
acetaminophen 500 mg/15 mL liquid
1,000 mg PO Q6H PRN (Reason: mild pain) Qty: 237 0RF
Referrals:
UNKNOWN - PT DOES,NOT KNOW [Family Provider] -
Interventions
Interventions:
*Risk Screen - Suicide Last Done: 12/05/23 21:11
*General Assessment Last Done: 12/05/23 21:11
*Neglect/Abuse Screening Last Done: 12/05/23 21:11
ED- Fall Risk Assessment Last Done: 12/05/23 21:21
*ED COVID-19 Vaccine History Last Done: 12/05/23 21:21
*Nursing Disposition Last Done: 12/05/23 22:37
ED-Psychological Assessment Last Done: 12/05/23 21:21
Discharge Date and Time
Discharge Date/Time: 12/05/23 22:39
Print Language: DOMINICAN
== END 2023-12-05 22:39 | disposition home or self-care (01) ==
LOC: EMR 21:09
PROVIDERS: Emergency Medicine; EMERGENCY PHYSICIAN Emergency Medicine
DX: F10.129 Alcohol abuse with intoxication, unspecified (principal); Y90.6 Blood alcohol level of 120-199 mg/100 ml; Z59.00 Homelessness unspecified; K21.9 Gastro-esophageal reflux disease without esophagitis; F32.A Depression, unspecified; F41.9 Anxiety disorder, unspecified; H54.7 Unspecified visual loss; H91.90 Unspecified hearing loss, unspecified ear; F17.200 Nicotine dependence, unspecified, uncomplicated; Z87.442 Personal history of urinary calculi; Z90.49 Acquired absence of other specified parts of digestive tract; Z91.048 Other nonmedicinal substance allergy status
CPT/HCPCS: 99283; 80053; 80306; 80307; 82077; 85025

== ENCOUNTER 2023-12-08 12:17 | Emergency (ER) | payer OTHER, SELFPAY ==
[2023-12-08 12:22] VITALS: BP 172/102
--- NOTE | 2023-12-08 12:32 | ED.PDOC.TRB ---
ED Provider Triage
-
A medical screening examination has been initiated by a qualified medical provider. Based on the assessment performed at this time, it has been determined that an emergent medical condition may exist and the patient has been informed that further
medical evaluation and possible additional diagnostic testing may be needed.
HPI: This is a medical evaluation conducted in person to initiate diagnostic evaluation and provide initial therapeutics. Please see further documentation by the treating clinician.
GENERAL: Alert , in no apparent distress
EYE: No visual abnormalities.
NECK: Trachea midline
ENT: No visible abnormalities.
LUNGS: No acute respiratory distress
NEUROLOGICAL: Alert and oriented
SKIN: Skin intact. No visible changes.
MUSCULOSKELETAL: Moving extremities normally
PSYCH: Normal and appropriate interaction.
53-year-old male with a history of homelessness, alcohol abuse presents for request for inpatient alcohol detox. Patient last drink was about half an hour ago. He has been drinking for 12 fluid ounce bottles of fireball and wine daily. He does
not feel shaky. Patient is awake and alert and oriented, he is ambulatory and speaking clearly. I discussed the case with Ligia Bae who recommended screening labs and he will consult on the patient to find placement.
[2023-12-08 12:47] LABS: % Basophils 0.9 % (0-2); % Eosinophils 6.3 % (0-6); % Immature Granulocytes 0.1 % (0-0.5); % Lymphocytes 30.3 % (20.5-51.1); % Monocytes 8.2 % (1.7-9.3); % Neutrophils 54.2 % (42.2-75.2); Absolute Basophils 0.1 10^3/uL (0-0.2); Absolute Eosinophils 0.5 10^3/uL (0-0.7); Absolute Lymphocytes 2.3 10^3/uL (1.2-3.4); Absolute Monocytes 0.6 10^3/uL (0.1-0.6); Absolute Neutrophils 4.1 10^3/uL (1.4-6.5); Hematocrit 37.3 % (39.0-52.0); Hemoglobin 13.6 g/dL (13.0-18.0); Mean Corp Hgb Conc. 36.5 g/dL (33.0-37.0); Mean Corpuscular Hgb 31.9 pg (27.0-31.0); Mean Corpuscular Volume 87.6 fL (80.0-94.0); Mean Platelet Volume 11.2 fL (7.4-10.4); Nucleated Red Blood Cells % 0 % (-); Platelet Count 192 10^3/uL (130-400); Red Blood Cell Count 4.26 10^6/uL (4.70-6.10); Red Cell Dist. Width 12.6 % (11.5-14.5); White Blood Cell Count 7.5 10^3/uL (4.8-10.8)
[2023-12-08 12:56] LABS: ALT (SGPT) 30 U/L (0-50); AST (SGOT) 41 U/L (17-59); Albumin 4.2 g/dl (3.5-5.0); Alkaline Phosphatase 64 U/L (38-126); Blood Urea Nitrogen 13 mg/dl (9-20); Calcium 9.6 mg/dl (8.4-10.2); Carbon Dioxide 20 mmol/L (22-30); Chloride 109 mmol/L (98-107); Glucose 129 mg/dl (70-99); Lipase 115 U/L (23-300); Magnesium 1.6 mg/dl (1.6-2.3); Potassium 3.5 mmol/L (3.5-5.1); Sodium 144 mmol/L (135-145); Total Bilirubin 0.4 mg/dl (0.2-1.3); Total Protein 6.8 g/dl (6.3-8.2); eGFR > 60.00
--- NOTE | 2023-12-08 13:23 | ED.GENMED ---
History of Present Illness
<DO Nadja Hannon Last Filed: 12/08/23 16:23>
General
Chief Complaint: Alcohol Problem
Source: patient and other (Accompanied by outpatient parking worker)
Time Seen by Provider: 12/08/23 12:52
History of Present Illness
History of Present Illness:
53-year-old male with history of alcoholism who presents seeking help use. The patient states that he had presented to partial outpatient but because he has been drinking they thought he could benefit from detox. He states he did drink earlier
today because he woke up shaking. Patient denies any other symptoms. He specifically denies abdominal pain or chest pain. States he occasionally has suicidal thoughts but that is been ongoing for a long time and he thinks stems from his
alcoholism. The patient is also homeless and again suspects it is from his alcoholism. States he is looking to get clean before he can handle other things.
Past History
<Medardo Montenegro DO - Last Filed: 12/08/23 16:23>
Past History
ED Past Medical History: GERD, Psychiatric (Anxiety, Depression) and Other (glaucoma, Migraines, Hiatal hernia, Renal calculus, poor vision, poor hearing, alcoholism)
ED Past Surgical History: Cholecystectomy, Orthopedic (Bilateral knee surgery, ) and Other (hernia right inguinal, Paraesophageal hernia repair)
Social History
Tobacco: Smoker
Alcohol: Daily
Personal: Single
Living: alone
Phy Exam
<Medardo Montenegro DO - Last Filed: 12/08/23 16:23>
Physical Exam
Physical Exam:
CONSTITUTIONAL Vital signs reviewed, Patient alert and oriented to person, place and time. Well-appearing
HEAD atraumatic, normocephalic.
EYES eyelids normal to inspection, Extraocular muscles intact, Conjunctiva normal, Sclera normal.
NECK normal range of motion, Trachea midline, no jugular venous distention.
RESP no respiratory distress
BACK No obvious deformities
UPPER EXTREMITY Gross Range of motion normal, gross motor strength normal
LOWER EXTREMITY Gross range of motion normal, Gross motor strength normal
NEURO Speech normal, No focal motor deficits include, Del coma scale 15, Memory normal, Cranial Nerves intact to screening exam.
SKIN Skin warm, dry, and normal in color.
Scores
<Medardo Montenegro DO - Last Filed: 12/08/23 16:23>
Withdrawal Assessment of Alcohol
Withdrawal Assessment Completed?: Yes
Nausea and Vomiting: No nausea and no vomiting
Tactile Disturbances: None
Tremor: No tremor
Auditory Disturbances: Not present
Paroxysmal Sweats: No sweat visible
Visual Disturbances: Not present
Anxiety: No anxiety, at ease
Headache, Fullness in Head: Not present
Agitation: Normal activity
Orientation and clouding of sensorium: Oriented and can do serial additions
Total CIWA Score: 0
Alcohol Withdrawal Medication Recommendation: Equal to MSAS Score 0-4. Monitor & re-assess q2hrs, NO MEDICATION NEEDED
<Erick Farrell MD - Last Filed: 12/09/23 06:59>
Withdrawal Assessment of Alcohol
Total CIWA Score: 0
Alcohol Withdrawal Medication Recommendation: Equal to MSAS Score 0-4. Monitor & re-assess q2hrs, NO MEDICATION NEEDED
Course
<Medardo Montenegro DO - Last Filed: 12/08/23 16:23>
Orders/Labs/Results
Orders:
Orders
12/08/23 12:36
Complete Blood Count/With Diff Urgent
Comprehensive Metabolic Panel Urgent
Lipase Urgent
Magnesium Urgent
12/08/23 13:40
Crisis Consult Urgent
Reason for Consult: hallucinations
12/08/23 14:08
Urine Drug Abuse Screen Urgent
Date Specimen was Collected: 12/08/23
Time Specimen was Collected: 14:06
12/08/23 15:00
Alcohol Urgent
12/08/23 18:33
Diazepam [Valium] 5 mg PO NOW STA
12/08/23 21:59
Diazepam [Valium] 5 mg PO NOW STA
12/08/23 22:03
Acetaminophen [Tylenol] 650 mg .ROUTE .STK-MED ONE
12/08/23 22:04
Acetaminophen [Tylenol] 650 mg PO NOW STA
Abnormal Lab Results
12/08/23 12/08/23
12:36 14:08
RBC 4.26 L 10^6/uL
(4.70-6.10)
Hct 37.3 L %
(39.0-52.0)
MCH 31.9 H pg
(27.0-31.0)
MPV 11.2 H fL
(7.4-10.4)
Eosinophils % 6.3 H %
(0-6)
Chloride 109 H mmol/L
(98-107)
Carbon Dioxide 20 L mmol/L
(22-30)
Creatinine 0.6 L mg/dL
(0.7-1.3)
Glucose 129 H mg/dl
(70-99)
U Marijuana (THC) Screen Positive H
(Negative)
12/08/23 12:36
12/08/23 12:36
Vital Signs
Initial and Last Documented VS:
Initial Vital Signs
Temp Pulse Resp BP Pulse Ox
36.8 C 94 16 172/102 97
12/08/23 12:22 12/08/23 12:22 12/08/23 12:22 12/08/23 12:22 12/08/23 12:22
Last Documented Vital Signs
Temp Pulse Resp BP Pulse Ox
36.7 C 65 16 148/96 98
12/08/23 20:03 12/09/23 05:50 12/09/23 05:50 12/09/23 05:50 12/09/23 05:50
<Erick Farrell MD - Last Filed: 12/09/23 06:59>
Orders/Labs/Results
Orders:
Orders
12/08/23 12:36
Complete Blood Count/With Diff Urgent
Comprehensive Metabolic Panel Urgent
Lipase Urgent
Magnesium Urgent
12/08/23 13:40
Crisis Consult Urgent
Reason for Consult: hallucinations
12/08/23 14:08
Urine Drug Abuse Screen Urgent
Date Specimen was Collected: 12/08/23
Time Specimen was Collected: 14:06
12/08/23 15:00
Alcohol Urgent
12/08/23 18:33
Diazepam [Valium] 5 mg PO NOW STA
12/08/23 21:59
Diazepam [Valium] 5 mg PO NOW STA
12/08/23 22:03
Acetaminophen [Tylenol] 650 mg .ROUTE .STK-MED ONE
12/08/23 22:04
Acetaminophen [Tylenol] 650 mg PO NOW STA
Abnormal Lab Results
12/08/23 12/08/23
12:36 14:08
RBC 4.26 L 10^6/uL
(4.70-6.10)
Hct 37.3 L %
(39.0-52.0)
MCH 31.9 H pg
(27.0-31.0)
MPV 11.2 H fL
(7.4-10.4)
Eosinophils % 6.3 H %
(0-6)
Chloride 109 H mmol/L
(98-107)
Carbon Dioxide 20 L mmol/L
(22-30)
Creatinine 0.6 L mg/dL
(0.7-1.3)
Glucose 129 H mg/dl
(70-99)
U Marijuana (THC) Screen Positive H
(Negative)
12/08/23 12:36
12/08/23 12:36
Vital Signs
Initial and Last Documented VS:
Initial Vital Signs
Temp Pulse Resp BP Pulse Ox
36.8 C 94 16 172/102 97
12/08/23 12:22 12/08/23 12:22 12/08/23 12:22 12/08/23 12:22 12/08/23 12:22
Last Documented Vital Signs
Temp Pulse Resp BP Pulse Ox
36.7 C 65 16 148/96 98
12/08/23 20:03 12/09/23 05:50 12/09/23 05:50 12/09/23 05:50 12/09/23 05:50
<DO Nadja Hannon Last Filed: 12/08/23 16:23>
MDM/Problems Addressed
MDM/Problems Addressed:
Alcoholism, homelessness
<DO Nadja Hannon Last Filed: 12/08/23 16:23>
*Pulse Oximetry
Patient hypoxic: no
*Critical Care Note
Total Time (30-74mins, 75-104mins- exclusive of procedures): Not Applicable
Data Reviewed
Source: patient
Prescriptions/Medications Considered But Not Given:
Consider lorazepam but the patient drank alcohol today and does not appear to be in withdrawal
<DO Nadja Hannon Last Filed: 12/08/23 16:23>
Patient Management
Escalation/DeEscalation of care consider admission/obs:
Seen by program research specialist and referred to crisis. Patient is willing to go to dual placement. Will discharge to crisis. Case was discussed with parking worker
<DO Nadja Hannon Last Filed: 12/08/23 16:23>
Update Note
Update Note:
Patient accepted at alcohol rehabilitation but not until the morning. Patient is homeless with a history of alcohol withdrawal seizure. Continue to monitor
<Erick Farrell MD - Last Filed: 12/09/23 06:59>
Update Note
Update Note:
Patient accepted at alcohol rehabilitation but not until the morning. Patient is homeless with a history of alcohol withdrawal seizure. Continue to monitor
UPDATE (Erick Farrell MD)
Patient is pending placement in inpatient detox/rehab for alcohol abuse. He received Valium overnight for withdrawal symptoms last dose was 5 mg p.o at 10 PM. This morning he is complaining of restlessness, diaphoresis, mild nausea, mild headache.
Dosed with Ativan 0.5 mg for mild withdrawal; monitor pending placement.
ED Attending Note
<Medardo Montenegro DO - Last Filed: 12/08/23 16:23>
-
Portions of this chart may have been created with voice recognition software.� Occasional wrong word or��sound alike� substitutions may have occurred due to the inherent limitations of voice recognition software.
Discharge Plan
Departure
Patient Disposition: Acute Rehab Facility
Date of Disposition: 12/08/23
Time of Disposition: 13:24
Discharge Problem:
Alcohol abuse
Prescriptions:
No Action
latanoprost 0.005 % Drops
1 drp BOTH EYES HS
dorzolamide-timolol [Cosopt] 22.3-6.8 mg/mL Drops
1 drp BOTH EYES BID
oxycodone 5 mg/5 mL Solution
5 mg PO Q4HPRN PRN (Reason: severe/breakthrough pain) Qty: 60 0RF
acetaminophen 500 mg/15 mL liquid
1,000 mg PO Q6H PRN (Reason: mild pain) Qty: 237 0RF
Interventions
Interventions:
*Risk Screen - Suicide Last Done: 12/08/23 15:30
*General Assessment Last Done: 12/08/23 15:30
*Neglect/Abuse Screening Last Done: 12/08/23 15:30
ED- Neurological Assessment Last Done: 12/08/23 15:30
ED-Psychological Assessment Last Done: 12/08/23 15:30
Discharge Date and Time
Print Language: YORUBA
[2023-12-08 14:00] VITALS: BP 133/92
[2023-12-08 15:09] LABS: Amphetamines Negative (Negative); Barbiturates Negative (Negative); Benzodiazepines Negative (Negative); Buprenorphine Negative (Negative); Cocaine Negative (Negative); Marijuana Positive (Negative); Methadone Negative (Negative); Methamphetamines Negative (Negative); Opiates Negative (Negative); Phencyclidine Negative (Negative); Tricyclic Antidepressants Negative (Negative)
[2023-12-08 16:00] VITALS: BP 124/74
[2023-12-08 17:08] LABS: Alcohol 22 mg/dl
[2023-12-08 18:00] VITALS: BP 134/71
[2023-12-08] MEDS: VALIUM 5 MG PO ×2 (18:43→22:01)
[2023-12-08 20:03] VITALS: BP 137/86
[2023-12-08] MEDS: TYLENOL 650 MG PO (22:04)
--- NOTE | 2023-12-09 04:00 | EDRN ---
Report received, patient is sleeping at this time, will continue to monitor
[2023-12-09 05:50] VITALS: BP 148/96
--- NOTE | 2023-12-09 05:50 | EDRN ---
Patient freedom of information officer steiner stating he needs something for withdraw, there isn't anything currently ordered for this, patient has an MSAS of 1 currently
--- NOTE | 2023-12-09 06:20 | EDRN ---
Patient was back on the call steiner asking the PCT about wanting something for withdraw, when this nurse went in to speak with patient he was passed out asleep, had to wake patient to talk to him and explain there was nothing ordered for withdraw
however I would speak with provider, spoke with Dr. Farrell who is the oncoming ER physician about the patient and his request for meds and what his MSAS score is and what he has all received through the shift, patient is suppose to go for placement
this am, Dr. Farrell will come back and see and assess patient
--- NOTE | 2023-12-09 06:54 | EDRN ---
Dr. Farrell in the room seeing patient, and assessing will order patient some medication, spoke with maryann with [facility], patient was accepted however there isn't a bed for the patient, when [facility] 0800 he will call and see if
there is a bed, if no bed at that time, Manuel MORE will be in around 1600 and will call for a bed again, Maryann informed me she would send Catalino an email to let him know we were asking about a bed, on coming nurse Alanna and charge nurse aware
of status.
[2023-12-09] MEDS: ATIVAN 0.5 MG PO (07:34)
[2023-12-09 07:57] VITALS: BP 146/94
[2023-12-09 10:16] VITALS: BP 144/98
== END 2023-12-09 10:28 ==
LOC: EMR 12:17
PROVIDERS: Physician Assistant; EMERGENCY PHYSICIAN Emergency Medicine; FAMILY PHYSICIAN Family Medicine
DX: R45.851 Suicidal ideations (principal); F10.20 Alcohol dependence, uncomplicated; R25.1 Tremor, unspecified; Z59.00 Homelessness unspecified; K21.9 Gastro-esophageal reflux disease without esophagitis; F41.9 Anxiety disorder, unspecified; H40.9 Unspecified glaucoma; F32.A Depression, unspecified; G43.909 Migraine, unspecified, not intractable, without status migrainosus; F17.200 Nicotine dependence, unspecified, uncomplicated; Z87.442 Personal history of urinary calculi; Z90.49 Acquired absence of other specified parts of digestive tract; Z91.048 Other nonmedicinal substance allergy status
CPT/HCPCS: 99285; 80053; 80306; 82077; 83690; 83735; 85025

== ENCOUNTER 2024-02-26 11:04 | Emergency (ER) | payer OTHER, SELFPAY ==
[2024-02-26 11:06] VITALS: BP 115/112
[2024-02-26 11:09] VITALS: BP 155/112
--- NOTE | 2024-02-26 11:47 | ED.GENMED ---
History of Present Illness
<Soco Paige PA-C - Last Filed: 02/26/24 16:55>
General
Chief Complaint: Crisis Evaluation
Source: patient
Exam Limitations: none
Time Seen by Provider: 02/26/24 11:18
Nursing documentation reviewed up to this point in time: agreed with
History of Present Illness
History of Present Illness:
Patient is a 53-year-old male with history of alcohol abuse, homelessness presenting to the emergency department due to alcohol intoxication. Patient brought in by [facility] after patient showed up to group therapy and was intoxicated.
Patient is seeking detox and alcohol rehab. Patient states that he drank a fifth of liquor earlier this morning although is unsure of exactly what time. Patient drinks daily. He does have a history of seizures with alcohol withdrawal.
Patient denies any current, vomiting, abdominal pain, hallucinations.
Patient does occasionally self-harm by burning himself with cigarette. Patient denies any current suicidal thoughts. No homicidal thoughts.
Past History
<Soco Paige PA-C - Last Filed: 02/26/24 16:55>
Past History
ED Past Medical History: GERD, Psychiatric (Anxiety, Depression) and Other (glaucoma, Migraines, Hiatal hernia, Renal calculus, poor vision, poor hearing, alcoholism)
ED Past Surgical History: Cholecystectomy, Orthopedic (Bilateral knee surgery, ) and Other (hernia right inguinal, Paraesophageal hernia repair)
Social History
Tobacco: Smoker
Alcohol: Daily
Personal: Single
Living: alone
Review of Systems
<Soco Paige PA-C - Last Filed: 02/26/24 16:55>
Review of Systems
Allergies reviewed?: Yes
All Other Systems: ROS reviewed and negative except as documented in HPI and ROS
Phy Exam
<Soco Paige PA-C - Last Filed: 02/26/24 16:55>
Physical Exam
Physical Exam:
Vitals: Hypertensive, otherwise vital signs stable. Afebrile
General: Patient is well appearing, no acute distress
Skin: Warm and dry, no rashes or lesions
Head: Normocephalic, atraumatic
Eyes: Sclera nonicteric. EOMs intact. No nystagmus.
Throat: Protecting airway
Neck: Normal ROM, no cervical spine tenderness, no meningismus
Cardiac: Regular rate and rhythm, no murmurs.
Pulm: Normal respiratory effort, no wheezes, rales, rhonchi heard on exam.
Abdomen: No abdominal tenderness.
Extremities: No evidence of cyanosis or edema
Neuro: AAOx3. CN II-XII intact. No focal neurologic deficits.
Psychiatric: Mildly anxious.
Scores
<Soco Paige PA-C - Last Filed: 02/26/24 16:55>
Withdrawal Assessment of Alcohol
Withdrawal Assessment Completed?: Yes
Nausea and Vomiting: Mild nausea with no vomiting
Tactile Disturbances: None
Tremor: No tremor
Auditory Disturbances: Not present
Paroxysmal Sweats: No sweat visible
Visual Disturbances: Not present
Anxiety: Mild anxiety
Headache, Fullness in Head: Not present
Agitation: Normal activity
Orientation and clouding of sensorium: Oriented and can do serial additions
Total CIWA Score: 2
Alcohol Withdrawal Medication Recommendation: Equal to MSAS Score 0-4. Monitor & re-assess q2hrs, NO MEDICATION NEEDED
<Gertrude Lorenzo DO - Last Filed: 02/26/24 13:19>
Withdrawal Assessment of Alcohol
Total CIWA Score: 2
Alcohol Withdrawal Medication Recommendation: Equal to MSAS Score 0-4. Monitor & re-assess q2hrs, NO MEDICATION NEEDED
Course
<Soco Paige PA-C - Last Filed: 02/26/24 16:55>
Orders/Labs/Results
Orders:
Orders
02/26/24 12:40
Lorazepam [Ativan] 1 mg PO NOW STA
02/26/24 12:58
Alcohol Urgent
Complete Blood Count/With Diff Urgent
Comprehensive Metabolic Panel Urgent
02/26/24 13:31
Fentanyl, Urine Urgent
Urine Drug Abuse Screen Urgent
Date Specimen was Collected: 02/26/24
Time Specimen was Collected: 13:03
Abnormal Lab Results
02/26/24 02/26/24
12:58 13:31
MPV 11.2 H fL
(7.4-10.4)
Sodium 146 H mmol/L
(135-145)
Chloride 108 H mmol/L
(98-107)
Glucose 108 H mg/dl
(70-99)
U Benzodiazepines Scrn Positive H
(Negative)
02/26/24 12:58
02/26/24 12:58
Vital Signs
Initial and Last Documented VS:
Initial Vital Signs
Pulse BP Pulse Ox
84 115/112 99
02/26/24 11:06 02/26/24 11:06 02/26/24 11:06
Last Documented Vital Signs
Temp Pulse Resp BP Pulse Ox
98.0 F 84 18 155/112 99
02/26/24 11:14 02/26/24 11:09 02/26/24 11:09 02/26/24 11:09 02/26/24 11:09
<Gertrude Lorenzo, DO - Last Filed: 02/26/24 13:19>
Orders/Labs/Results
Orders:
Orders
02/26/24 12:40
Lorazepam [Ativan] 1 mg PO NOW STA
02/26/24 12:58
Alcohol Urgent
Complete Blood Count/With Diff Urgent
Comprehensive Metabolic Panel Urgent
02/26/24 13:31
Fentanyl, Urine Urgent
Urine Drug Abuse Screen Urgent
Date Specimen was Collected: 02/26/24
Time Specimen was Collected: 13:03
Abnormal Lab Results
02/26/24 02/26/24
12:58 13:31
MPV 11.2 H fL
(7.4-10.4)
Sodium 146 H mmol/L
(135-145)
Chloride 108 H mmol/L
(98-107)
Glucose 108 H mg/dl
(70-99)
U Benzodiazepines Scrn Positive H
(Negative)
02/26/24 12:58
02/26/24 12:58
Vital Signs
Initial and Last Documented VS:
Initial Vital Signs
Pulse BP Pulse Ox
84 115/112 99
02/26/24 11:06 02/26/24 11:06 02/26/24 11:06
Last Documented Vital Signs
Temp Pulse Resp BP Pulse Ox
98.0 F 84 18 155/112 99
02/26/24 11:14 02/26/24 11:09 02/26/24 11:09 02/26/24 11:09 02/26/24 11:09
<Soco Paige PA-C - Last Filed: 02/26/24 16:55>
MDM/Problems Addressed
Differential Diagnosis Includes:
Not limited to: Alcohol intoxication, alcohol withdrawal, polysubstance abuse, depression, etc.
MDM/Problems Addressed:
53-year-old male presents the emergency department acutely intoxicated. He does report drinking alcohol prior to arrival. He is seeking detox/rehab placement. No current SI/HI. No auditory/visual hallucinations. Patient denies any current
medical complaints including chest pain, shortness of breath, headache, vomiting. Patient hypertensive, otherwise vital signs stable. Physical exam as above. Patient acutely intoxicated although cooperative. No focal neurologic deficits.
Abdomen soft nontender. Cardio/pulmonary assessment unremarkable. Screening labs were obtained without any clinically significant abnormalities. He does have an alcohol level of 208. I do not feel the patient is a harm to himself or others at
this time. He is medically cleared for detox/rehabilitation. Will contact [facility] for evaluation and assistance with placement.
Chronic conditions affecting care:
Alcohol abuse, depression
Acute Exacerbation and/or Progression of Chronic Illness:
Acute alcohol intoxication
<Soco Paige PA-C - Last Filed: 02/26/24 16:55>
*Pulse Oximetry
Patient hypoxic: no
*EKG
Interpreted by ED Provider?: NA
*Solidworks Drafter Interpretation
Rate: Solidworks Drafter- N/A
*Critical Care Note
Total Time (30-74mins, 75-104mins- exclusive of procedures): Not Applicable
<Soco Paige PA-C - Last Filed: 02/26/24 16:55>
Update Note
Update Note:
Update 12:47 PM: Patient medically cleared for alcohol detox/rehab treatment. Spoke with [facility]. Patient accepted to [facility]. Patient stable for discharge pending transfer.
ED Attending Note
<Soco Paige PA-C - Last Filed: 02/26/24 16:55>
-
Portions of this chart may have been created with voice recognition software.� Occasional wrong word or��sound alike� substitutions may have occurred due to the inherent limitations of voice recognition software.
<Gertrude Lorenzo DO - Last Filed: 02/26/24 13:19>
ED Attending Note
Patient seen and examined by attending physician: Yes
I performed the substantive portion of visit, reviewed & personally made and approve the management plan that is documented in note by myself or ELOISA.: Yes
I performed a history and physical exam of patient and discussed management with resident, I reviewed resident's note and agree with documented findings and plan of care.: Yes
ED Attending Note:
53-year-old male with history of alcohol abuse and alcohol withdrawal seizures presenting for acute intoxication. Patient is seeking rehabilitation resources. He admits to drinking prior to arrival. Denies chest pain, difficulty breathing,
abdominal pain or acute medical complaints. Denies present SI or HI. Vital signs significant for mild hypertension.
On exam, patient appears slightly intoxicated, however is awake, alert, answering questions appropriately. No physical signs of trauma. In discussion with crisis, plan for inpatient placement for alcohol abuse. Patient is feeling anxious and
reporting loose nations. For this reason will dental technology [facility].
13:00 - Patient accepted to [facility]. Feel medically clear for psychiatric evaluation.
Discharge Plan
Departure
Patient Disposition: Acute Rehab Facility
Date of Disposition: 02/26/24
Time of Disposition: 13:03
Patient with high blood pressure during this ER visit?: Yes
Discharge Problem:
Alcohol abuse
Instructions: Depression, Adult (DC), Alcohol Intoxication ED, Drug and Alcohol Abuse Information
Prescriptions:
No Action
latanoprost 0.005 % Drops
1 drp BOTH EYES HS
dorzolamide-timolol [Cosopt] 22.3-6.8 mg/mL Drops
1 drp BOTH EYES BID
oxycodone 5 mg/5 mL Solution
5 mg PO Q4HPRN PRN (Reason: severe/breakthrough pain) Qty: 60 0RF
acetaminophen 500 mg/15 mL liquid
1,000 mg PO Q6H PRN (Reason: mild pain) Qty: 237 0RF
Referrals:
UNKNOWN - PT NOT,INTERVIEWE [Family Provider] -
Activity Restrictions/Additional Instructions:
Return to the emergency department with any severe signs of withdrawal, seizure, suicidal/homicidal thoughts chest pain, shortness of breath, worsening in current symptoms, or any other concerns
You are medically cleared for detox/rehab placement.
Interventions
Interventions:
*Risk Screen - Suicide Last Done: 02/26/24 11:10
*General Assessment Last Done: 02/26/24 14:54
*Neglect/Abuse Screening Last Done: 02/26/24 11:09
ED- Fall Risk Assessment Last Done: 02/26/24 14:54
*ED COVID-19 Vaccine History Last Done: 02/26/24 11:15
*Nursing Disposition Last Done: 02/26/24 14:54
ED-Psychological Assessment Last Done: 02/26/24 14:53
Discharge Date and Time
Discharge Date/Time: 02/26/24 14:55
Print Language: MALAGASY
[2024-02-26] MEDS: ATIVAN 1 MG PO (12:58)
[2024-02-26 13:43] LABS: % Basophils 0.9 % (0-2); % Eosinophils 2.7 % (0-6); % Immature Granulocytes 0.4 % (0-0.5); % Lymphocytes 27.4 % (20.5-51.1); % Monocytes 3.8 % (1.7-9.3); % Neutrophils 64.8 % (42.2-75.2); Absolute Basophils 0.1 10^3/uL (0-0.2); Absolute Eosinophils 0.3 10^3/uL (0-0.7); Absolute Lymphocytes 2.6 10^3/uL (1.2-3.4); Absolute Monocytes 0.4 10^3/uL (0.1-0.6); Absolute Neutrophils 6.1 10^3/uL (1.4-6.5); Hematocrit 44.3 % (39.0-52.0); Hemoglobin 15.5 g/dL (13.0-18.0); Mean Corpuscular Hgb 30.9 pg (27.0-31.0); Mean Corpuscular Volume 88.2 fL (80.0-94.0); Mean Platelet Volume 11.2 fL (7.4-10.4); Nucleated Red Blood Cells % 0 % (-); Platelet Count 178 10^3/uL (130-400); Red Blood Cell Count 5.02 10^6/uL (4.70-6.10); Red Cell Dist. Width 11.9 % (11.5-14.5); White Blood Cell Count 9.4 10^3/uL (4.8-10.8)
[2024-02-26 13:59] LABS: ALT (SGPT) 21 U/L (0-50); AST (SGOT) 26 U/L (17-59); Alcohol 208 mg/dl; Alkaline Phosphatase 68 U/L (38-126); Blood Urea Nitrogen 15 mg/dl (9-20); Calcium 9.8 mg/dl (8.4-10.2); Carbon Dioxide 26 mmol/L (22-30); Chloride 108 mmol/L (98-107); Glucose 108 mg/dl (70-99); Potassium 4.5 mmol/L (3.5-5.1); Sodium 146 mmol/L (135-145); Total Bilirubin 0.2 mg/dl (0.2-1.3); Total Protein 8.1 g/dl (6.3-8.2); eGFR > 60.00
[2024-02-26 14:01] LABS: Amphetamines Negative (Negative); Barbiturates Negative (Negative); Benzodiazepines Positive (Negative); Buprenorphine Negative (Negative); Cocaine Negative (Negative); Marijuana Negative (Negative); Methadone Negative (Negative); Methamphetamines Negative (Negative); Opiates Negative (Negative); Phencyclidine Negative (Negative); Tricyclic Antidepressants Negative (Negative)
[2024-02-26 14:59] LABS: Fentanyl, Urine Negative (Negative)
== END 2024-02-26 14:55 ==
LOC: EMR 11:04
PROVIDERS: Physician Assistant; EMERGENCY PHYSICIAN Student in an Organized Health Care Education/Training Program
DX: F10.129 Alcohol abuse with intoxication, unspecified (principal); Y90.7 Blood alcohol level of 200-239 mg/100 ml; F32.A Depression, unspecified; F17.210 Nicotine dependence, cigarettes, uncomplicated; I10 Essential (primary) hypertension; K21.9 Gastro-esophageal reflux disease without esophagitis
CPT/HCPCS: 99285; 80053; 80306; 80307; 82077; 85025

== ENCOUNTER 2024-02-27 15:05 | Emergency (ER) | payer OTHER, SELFPAY ==
[2024-02-27 15:12] VITALS: BP 158/94
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
[2024-02-27] MEDS: LUMINAL 97.2 MG PO (17:46)
[2024-02-27 19:02] VITALS: BMI 33.8
[2024-02-27 19:11] VITALS: BP 140/99
== END 2024-02-27 20:05 | disposition home or self-care (01) ==
LOC: EMR 15:05
PROVIDERS: EMERGENCY PHYSICIAN Emergency Medicine; PRIMARYCARE PHYSICIAN Family Medicine
DX: F10.10 Alcohol abuse, uncomplicated (principal); F17.200 Nicotine dependence, unspecified, uncomplicated; R03.0 Elevated blood-pressure reading, without diagnosis of hypertension; Z59.00 Homelessness unspecified
CPT/HCPCS: 99283

== ENCOUNTER 2024-03-02 10:15 | Emergency (ER) | payer OTHER, SELFPAY ==
[2024-03-02 10:19] VITALS: BP 158/99
--- NOTE | 2024-03-02 10:44 | ED.GENMED ---
History of Present Illness
General
Chief Complaint: Crisis Evaluation
Source: patient and family
Exam Limitations: none
Time Seen by Provider: 03/02/24 10:25
Nursing documentation reviewed up to this point in time: agreed with
History of Present Illness
History of Present Illness:
53-year-old male presents emergency room due to alcohol abuse, sent by [facility] to see ARGENIS. He complains of right hand pain after punching a wall 5 days ago. He also complains of groin swelling. This was likely a hematoma from
prior. It has gone down. Denies suicidal homicidal ideation
Past History
Past History
ED Past Medical History: GERD, Psychiatric (Anxiety, Depression) and Other (glaucoma, Migraines, Hiatal hernia, Renal calculus, poor vision, poor hearing, alcoholism)
ED Past Surgical History: Cholecystectomy, Orthopedic (Bilateral knee surgery, ) and Other (hernia right inguinal, Paraesophageal hernia repair)
Social History
Tobacco: Smoker
Alcohol: Daily
Drug: None
Personal: Single
Living: alone
Review of Systems
Review of Systems
Allergies reviewed?: Yes
All Other Systems: Not applicable
Constitutional: Reports no symptoms
EENT: Reports no symptoms
Respiratory: Reports no symptoms
Cardiac: Reports no symptoms
ABD/GI: Reports no symptoms
: Reports other (Scrotal swelling)
Musculoskeletal: Reports joint pain
Skin: Reports no symptoms
Neurological: Reports no symptoms
Endocrine: Reports no symptoms
Hematologic/Lymphatic: Reports no symptoms
Psychiatric: Reports no symptoms
Phy Exam
Physical Exam
Physical Exam:
Physical Exam
General: no apparent distress, not acutely ill
Neck: supple. no meningeal signs. normal posterior pharynx
Heart: s1/s2 regular rate and rhythm, no murmur. equal radial
pulses.
HEENT: Pupils equal round reactive to light, EOMI
Lungs: no acute respiratory distress. clear bilaterally
Abdomen: not tender. no CVAT
: right scrotal swelling, non tender
Neuro: alert and oriented. no focal neurological deficits cranial nerves II through XII intact
Skin: no rash
Psychiatric: well kept. interactive and cooperative
Extremities: no edema. no calf tenderness. negative homans. good distal pulses, right hand tender to palpation at right fifth metacarpal
Course
Orders/Labs/Results
Orders:
Orders
03/02/24 10:43
Hand, Right 3 View [CR Hand - Right Min 3 Views] Urgent
Comment:
Reason For Exam: right hand pain, punched wall 5 days ago
US Scrotum Urgent
Comment:
Reason For Exam: right scrotal swelling
03/02/24 12:47
Acetaminophen [Tylenol] 650 mg PO NOW STA
03/02/24 13:01
Ulnar Gutter Left-Treatment ONCE
Vital Signs
Initial and Last Documented VS:
Initial Vital Signs
Temp Pulse Resp BP Pulse Ox
98.6 F 58 16 158/99 97
03/02/24 10:19 03/02/24 10:19 03/02/24 10:19 03/02/24 10:19 03/02/24 10:19
Last Documented Vital Signs
Temp Pulse Resp BP Pulse Ox
98.6 F 58 16 133/94 96
03/02/24 10:19 03/02/24 10:19 03/02/24 10:19 03/02/24 11:00 03/02/24 11:00
MDM/Problems Addressed
Differential Diagnosis Includes:
Fracture, scrotal infection
MDM/Problems Addressed:
53-year-old male with fifth metacarpal fracture, fluid collection in the scrotum. This is been ongoing for months. Do not suspect abscess. Will have patient follow-up with urology. Patient also to follow-up with orthopedics.
*Radiology
Radiology exam reviewed: radiology read reviewed (Right hand x-ray fifth metacarpal fracture, ultrasound scrotum complex fluid collection right scrotal sac)
*Pulse Oximetry
Patient hypoxic: no
*Critical Care Note
Total Time (30-74mins, 75-104mins- exclusive of procedures): Not Applicable
Patient Management
Social determinants of health affecting care: Living situation and Substance abuse (Alcohol abuse)
Escalation/DeEscalation of care consider admission/obs:
Admit not indicated, transfer to rehab center indicated
ED Attending Note
-
Portions of this chart may have been created with voice recognition software.� Occasional wrong word or��sound alike� substitutions may have occurred due to the inherent limitations of voice recognition software.
Discharge Plan
Departure
Patient Disposition: Home (Routine Discharge)
Date of Disposition: 03/02/24
Time of Disposition: 13:16
Patient with high blood pressure during this ER visit?: Yes
Condition: Good
Discharge Problem:
Fracture of fifth metacarpal bone of right hand, Hydrocele in adult
Instructions: Hydrocele, BLOOD PRESSURE
Prescriptions:
No Action
latanoprost 0.005 % Drops
1 drp BOTH EYES HS
dorzolamide-timolol [Cosopt] 22.3-6.8 mg/mL Drops
1 drp BOTH EYES BID
oxycodone 5 mg/5 mL Solution
5 mg PO Q4HPRN PRN (Reason: severe/breakthrough pain) Qty: 60 0RF
acetaminophen 500 mg/15 mL liquid
1,000 mg PO Q6H PRN (Reason: mild pain) Qty: 237 0RF
Referrals:
Shahid Serrano DO [Family Provider] -
Interventions
Interventions:
*Risk Screen - Suicide Last Done: 03/02/24 10:19
*General Assessment Last Done: 03/02/24 10:19
*Neglect/Abuse Screening Last Done: 03/02/24 10:19
Discharge Date and Time
Print Language: [place]IZ[place]
[2024-03-02 10:53] VITALS: BP 132/89
[2024-03-02 11:00] VITALS: BP 133/94
[2024-03-02 12:42] VITALS: BP 129/84
[2024-03-02] MEDS: TYLENOL 650 MG PO (12:50)
[2024-03-02 13:00] VITALS: BP 126/95
[2024-03-02 14:00] VITALS: BP 146/109
== END 2024-03-02 14:17 ==
LOC: EMR 10:15
PROVIDERS: EMERGENCY PHYSICIAN Emergency Medicine; FAMILY PHYSICIAN Family Medicine
DX: S62.396A Other fracture of fifth metacarpal bone, right hand, initial encounter for closed fracture (principal); W22.09XA Striking against other stationary object, initial encounter; N43.3 Hydrocele, unspecified; K21.9 Gastro-esophageal reflux disease without esophagitis; F17.200 Nicotine dependence, unspecified, uncomplicated; F10.10 Alcohol abuse, uncomplicated; Z90.49 Acquired absence of other specified parts of digestive tract
CPT/HCPCS: 99285; 73130; 76870; 93976

== ENCOUNTER 2024-12-03 12:32 | Emergency (ER) | payer OTHER, SELFPAY ==
[2024-12-03 12:36] VITALS: BP 137/88
--- NOTE | 2024-12-03 13:05 | ED.GENMED ---
History of Present Illness
<Benny Garrison MD, Resident - Last Filed: 12/03/24 15:31>
General
Chief Complaint: Visual Problem
Source: patient and family
Exam Limitations: none
Time Seen by Provider: 12/03/24 13:02
Nursing documentation reviewed up to this point in time: agreed with
History of Present Illness
History of Present Illness:
54-year-old male with a past medical history of glaucoma and right eye blindness with severely reduced left eye vision, migraines and anxiety comes to the ED due to visual hallucination and worsening of his vision. He says the symptoms began last
night but he woke up feeling like this in the morning. He describes the symptoms as headlights or weird lights that he can see mainly from his left eye. He states that he has around 40% vision in his left eye which has now even further reduced and
gotten blurry. He had a similar instance around 2 weeks ago which resolved by itself. He does not report any headaches, chest pain, shortness of breath, pain in his eyes, and has not noticed any sensory or motor changes. He does not report any
fever or chills, but says that he was given antibiotics for a staph infection in his back for 2 weeks. He says that his last alcohol drink was around many months ago.
Past History
<Benny Garrison MD, Resident - Last Filed: 12/03/24 15:31>
Past History
ED Past Medical History: GERD, Psychiatric (Anxiety, Depression) and Other (glaucoma, Migraines, Hiatal hernia, Renal calculus, poor vision, poor hearing, alcoholism)
ED Past Surgical History: Cholecystectomy, Orthopedic (Bilateral knee surgery, ) and Other (hernia right inguinal, Paraesophageal hernia repair)
Social History
Tobacco: Smoker
Alcohol: Daily
Drug: None
Personal: Single
Living: alone
Review of Systems
<Benny Garrison MD, Resident - Last Filed: 12/03/24 15:31>
Review of Systems
Allergies reviewed?: Yes
Other source history: family
Constitutional: Reports no symptoms
EENT: Reports other (Visual hallucinations with worsening vision loss in left eye)
Respiratory: Reports no symptoms
Cardiac: Reports no symptoms
ABD/GI: Reports no symptoms
: Reports no symptoms
Musculoskeletal: Reports no symptoms
Skin: Reports no symptoms
Neurological: Reports no symptoms
Endocrine: Reports no symptoms
Hematologic/Lymphatic: Reports no symptoms
Psychiatric: Reports no symptoms
Phy Exam
<Benny Garrison MD, Resident - Last Filed: 12/03/24 15:31>
General Physical Exam
General Presentation: moderate distress
General Skin: warm and dry
General Habitus: normal
General Mental: alert
General Hydration: appears well hydrated
Eye Exam
Eye Exam: EOMI and other (Right eye blindness, left eye visual garnica unable to be determined, vision too blurry for patient to be properly tested)
Eye Exam General: EOM intact: bilateral
Cardiovascular Exam
Cardiovascular Exam: regular rate/rhythm, no edema and no murmur
Pulmonary Exam
Pulmonary Exam: lungs clear, no respiratory distress, no crackles and no wheezing
Gastrointestinal Exam
Gastrointestinal Exam: normal bowel sounds, non tender, soft and non distended
Neurological Exam
Neurological Exam: alert, oriented x3, no motor deficits, no sensory deficits, speech normal and other (Hearing loss left ear)
Course
<Benny Garrison MD, Resident - Last Filed: 12/03/24 15:31>
Orders/Labs/Results
Orders:
Orders
12/03/24 13:25
Electrocardiogram (*1) Urgent
Reason for Study: Other
Other Reason for Exam: Visual Hallucinations
CT Head & Neck Angio W/wo IV Urgent
Comment:
Reason For Exam: Visual Changes
EKG- Treatment ONCE
IV Insert/Care/Rem.- Treatment PRN
12/03/24 13:42
Alcohol Urgent
Complete Blood Count/With Diff Urgent
Comprehensive Metabolic Panel Urgent
Magnesium Urgent
Abnormal Lab Results
12/03/24
13:42
RBC 4.22 L 10^6/uL
(4.70-6.10)
Hgb 12.9 L g/dL
(13.0-18.0)
Hct 36.6 L %
(39.0-52.0)
Plt Count 126 L 10^3/uL
(130-400)
MPV 11.9 H fL
(7.4-10.4)
Eosinophils % 6.2 H %
(0-6)
Chloride 110 H mmol/L
(98-107)
BUN 23 H mg/dl
(9-20)
Glucose 113 H mg/dl
(70-99)
12/03/24 13:42
12/03/24 13:42
Vital Signs
Initial and Last Documented VS:
Initial Vital Signs
Temp Pulse Resp BP Pulse Ox
97.9 F 88 20 137/88 96
12/03/24 12:36 12/03/24 12:36 12/03/24 12:36 12/03/24 12:36 12/03/24 12:36
Last Documented Vital Signs
Temp Pulse Resp BP Pulse Ox
97.9 F 70 21 126/78 96
12/03/24 12:36 12/03/24 15:33 12/03/24 14:21 12/03/24 15:32 12/03/24 13:35
Carrolllt;Manuel Shen, DO - Last Filed: 12/03/24 16:48>
Orders/Labs/Results
Orders:
Orders
12/03/24 13:25
Electrocardiogram (*1) Urgent
Reason for Study: Other
Other Reason for Exam: Visual Hallucinations
CT Head & Neck Angio W/wo IV Urgent
Comment:
Reason For Exam: Visual Changes
EKG- Treatment ONCE
IV Insert/Care/Rem.- Treatment PRN
12/03/24 13:42
Alcohol Urgent
Complete Blood Count/With Diff Urgent
Comprehensive Metabolic Panel Urgent
Magnesium Urgent
Abnormal Lab Results
12/03/24
13:42
RBC 4.22 L 10^6/uL
(4.70-6.10)
Hgb 12.9 L g/dL
(13.0-18.0)
Hct 36.6 L %
(39.0-52.0)
Plt Count 126 L 10^3/uL
(130-400)
MPV 11.9 H fL
(7.4-10.4)
Eosinophils % 6.2 H %
(0-6)
Chloride 110 H mmol/L
(98-107)
BUN 23 H mg/dl
(9-20)
Glucose 113 H mg/dl
(70-99)
12/03/24 13:42
12/03/24 13:42
Vital Signs
Initial and Last Documented VS:
Initial Vital Signs
Temp Pulse Resp BP Pulse Ox
97.9 F 88 20 137/88 96
12/03/24 12:36 12/03/24 12:36 12/03/24 12:36 12/03/24 12:36 12/03/24 12:36
Last Documented Vital Signs
Temp Pulse Resp BP Pulse Ox
97.9 F 70 21 126/78 96
12/03/24 12:36 12/03/24 15:33 12/03/24 14:21 12/03/24 15:32 12/03/24 13:35
<Benny Garrison MD, Resident - Last Filed: 12/03/24 15:31>
MDM/Problems Addressed
Differential Diagnosis Includes:
Worsening glaucoma, alcohol withdrawal, retinal artery thrombosis, retinal detachment, intracranial abnormality including stroke
MDM/Problems Addressed:
54-year-old male with a past medical history of glaucoma and right eye blindness with severely reduced left eye vision, migraines and anxiety comes to the ED due to visual hallucination and worsening of his vision.
On exam patient continues to have left eye blurry vision, unable to determine visual garnica due to impaired vision
Will check labs including CBC, CMP, mag, alcohol levels
EKG normal
Will check CT head neck angio for any thrombosis
Electrolytes normal, no issues on CBC, mag in normal limits, alcohol not detected
Eye pressures normal in bilateral eyes.
Concern for possible retinal detachment, will get in contact with Dr. Amanda Carbajal in [place] to see if further management by Ophthalmology is needed
Discussed with Nurse from Dr. Carbajal's office regarding patient. Last time he was there was 2023, 1.5 years ago and was not very compliant with his eye drops for glaucoma. He was told that he should follow up or his vision will continue to
deteriorate. Nurse called Dr. Carbajal who said that she can follow up with patient on Friday if there is no fear for retinal detachment at this time, otherwise patient can head to [facility] for treatment for possible retinal detachment. Dr. Carbajal
relayed that patient's visual hallucinations can be attributed to his worsening Glaucoma causing Jl Bonnet Syndrome.
CT Head/Neck negative for any acute incranial process. Will discharge patient with instructions to follow up with Dr. Carbajal on Friday for further management of his worsening Glaucoma.
Chronic conditions affecting care: Other (Glaucoma)
<Benny Garrison MD, Resident - Last Filed: 12/03/24 15:31>
*Pulse Oximetry
SaO2: 96
Oxygen Mode of Delivery: Room air
Patient hypoxic: no
*Critical Care Note
Total Time (30-74mins, 75-104mins- exclusive of procedures): Not Applicable
ED Attending Note
<Benny Garrison MD, Resident - Last Filed: 12/03/24 15:31>
-
Portions of this chart may have been created with voice recognition software.� Occasional wrong word or��sound alike� substitutions may have occurred due to the inherent limitations of voice recognition software.
<Manuel Shen, DO - Last Filed: 12/03/24 16:48>
ED Attending Note
Patient seen and examined by attending physician: Yes
I performed a history and physical exam of patient and discussed management with resident, I reviewed resident's note and agree with documented findings and plan of care.: Yes
ED Attending Note:
I have reviewed and agree with history and treatment plan by Benny Garrison MD.
54-year-old male presents Emergency Department due to left eye vision loss worsening throughout the day. He has a history glaucoma. My exam reveals unable to obtain visual acuities. Bilateral intraocular pressures show right side 9 and left side
10. Unclear cause of vision loss will check CT angiography . No other focal neurologic deficits. Discussed with Dr. Carbajal, likely due to advancing glaucoma and untreated glaucoma. No signs of acute angle-closure glaucoma.
Discharge Plan
Departure
Patient Disposition: Home (Routine Discharge)
Date of Disposition: 12/03/24
Time of Disposition: 15:30
Patient with high blood pressure during this ER visit?: Yes
Condition: Fair
Covid-19: Not Applicable
Discharge Problem:
Glaucoma, Legal blindness
Instructions: Glaucoma (DC)
Prescriptions:
No Action
latanoprost 0.005 % Drops
1 drp BOTH EYES HS
dorzolamide-timolol [Cosopt] 22.3-6.8 mg/mL Drops
1 drp BOTH EYES BID
oxycodone 5 mg/5 mL Solution
5 mg PO Q4HPRN PRN (Reason: severe/breakthrough pain) Qty: 60 0RF
acetaminophen 500 mg/15 mL liquid
1,000 mg PO Q6H PRN (Reason: mild pain) Qty: 237 0RF
Referrals:
UNKNOWN - PT NOT,INTERVIEWE [Family Provider]
Amanda Carbajal MD [Non-Admitting Privileges, Ophthalmology] - Call in 1-3 days for appt
Referral Note: Please follow-up with Dr. Carbajal on Friday
Activity Restrictions/Additional Instructions:
As discussed, please call Dr. Carbjaal's office for ophthalmology appointment on Friday, she is willing to see you for treatment of your glaucoma.
If your symptoms worsen, you develop pain in your eye, worsening vision loss please head to [facility] for further management
If you develop any chest pain, shortness of breath, fever, or chills, please return to the ED for further management.
Interventions
Interventions:
*Risk Screen - Suicide Last Done: 12/03/24 12:36
*General Assessment Last Done: 12/03/24 12:36
*Neglect/Abuse Screening Last Done: 12/03/24 12:36
*ED- Fall Risk Assessment Last Done: 12/03/24 13:45
*ED COVID-19 Vaccine History Last Done: 12/03/24 13:45
Discharge Date and Time
Print Language: SYRIAC
[2024-12-03 13:44] VITALS: BMI 34.1
[2024-12-03 13:54] LABS: Hematocrit 36.6 % (39.0-52.0); Hemoglobin 12.9 g/dL (13.0-18.0); Mean Corp Hgb Conc. 35.2 g/dL (33.0-37.0); Mean Corpuscular Volume 86.7 fL (80.0-94.0); Nucleated Red Blood Cells % 0 % (-); Platelet Count 126 10^3/uL (130-400); Red Cell Dist. Width 12.1 % (11.5-14.5)
[2024-12-03 14:00] VITALS: BP 133/87
[2024-12-03 14:09] LABS: ALT (SGPT) 21 U/L (0-50); AST (SGOT) 24 U/L (17-59); Albumin 4.0 g/dl (3.5-5.0); Alkaline Phosphatase 52 U/L (38-126); Blood Urea Nitrogen 23 mg/dl (9-20); Calcium 9.7 mg/dl (8.4-10.2); Carbon Dioxide 25 mmol/L (22-30); Chloride 110 mmol/L (98-107); Estimated Creatinine Clearance > 125 ml/min; Glucose 113 mg/dl (70-99); Magnesium 1.9 mg/dl (1.6-2.3); Potassium 3.9 mmol/L (3.5-5.1); Sodium 140 mmol/L (135-145); Total Protein 6.5 g/dl (6.3-8.2); eGFR > 60.00
[2024-12-03 14:19] VITALS: BP 125/84
[2024-12-03 15:32] VITALS: BP 126/78
== END 2024-12-03 15:31 | disposition home or self-care (01) ==
LOC: EMR 12:32
PROVIDERS: EMERGENCY PHYSICIAN Emergency Medicine
DX: H40.9 Unspecified glaucoma (principal); H54.8 Legal blindness, as defined in USA; F17.200 Nicotine dependence, unspecified, uncomplicated
CPT/HCPCS: 99284; 70496; 70498; 80053; 82077; 83735; 85025; 93005; Q9967